=== PATIENT | female | born 1955 | race Caucasian/White ===

== ENCOUNTER 2021-12-05 15:36 | Inpatient (IN) | payer MEDICAID ==
[~2021-12-05] VITALS: Ht 162.6 cm; Wt 69.0 kg
[2021-12-05] MEDS ORDERED: acetaminophen 325mg tablet PO STA (16:07)
[2021-12-05] MEDS ORDERED: normal saline 1000ML IV soln IV ONE (16:10)
[2021-12-05 17:39] LABS: BASOPHILS # (AUTO) 0.1 X10'3 (0-0.2); BASOPHILS % (AUTO) 0.6 % (0-1); EOSINOPHILS % (AUTO) 0.2 % (0-6); HEMATOCRIT 41.3 % (35.0-45.0); HEMOGLOBIN 14.2 g/dl (12.0-16.0); LYMPHOCYTES # (AUTO) 1.8 X10'3 (1.1-4.8); LYMPHOCYTES % (AUTO) 12.7 % (21-51); MEAN CORPUSCULAR HEMOGLOBIN 30.7 PG (27.0-31.0); MEAN CORPUSCULAR HGB CONC 34.2 g/dL (33.0-36.5); MEAN CORPUSCULAR VOLUME 89.7 FL (78-98); MEAN PLATELET VOLUME 8.6 FL (7.4-10.4); MONOCYTES # (AUTO) 0.7 X10'3 (0-0.9); MONOCYTES % (AUTO) 4.9 % (2-12); NEUTROPHILS # (AUTO) 11.4 X10'3 (1.8-7.7); NEUTROPHILS % (AUTO) 81.6 % (42-75); PLATELET COUNT 457 X10'3 (140-440); RED BLOOD COUNT 4.61 X10'6 (4.20-5.60); WHITE BLOOD COUNT 13.9 X10'3 (4.5-11.0)
[2021-12-05 17:50] LABS: ALANINE AMINOTRANSFERASE 18 U/L (12-78); ALBUMIN 3.7 G/DL (3.4-5.0); ALBUMIN/GLOBULIN RATIO 0.7 (1.1-1.5); ALKALINE PHOSPHATASE 79 IU/L (46-116); ANION GAP 11 (8-16); ASPARTATE AMINO TRANSFERASE 15 U/L (10-37); BILIRUBIN,TOTAL 0.2 MG/DL (0.1-1.0); BLOOD UREA NITROGEN 13 MG/DL (7-18); BUN/CREATININE RATIO 12.3 (6.6-38.0); CALCIUM 10.1 MG/DL (8.5-10.1); CHLORIDE 99 MMOL/L (99-107); CREATININE 1.06 MG/DL (0.40-0.90); GLUCOSE 64 MG/DL (70-104); POTASSIUM 4.6 MMOL/L (3.5-5.1); SODIUM 136 MMOL/L (135-145); TOTAL CARBON DIOXIDE 25.8 MMOL/L (24-32); eGFR 52 ML/MIN
[2021-12-05] MEDS ORDERED: morphine 4 MG/ML inj SYRINge IV ONE (17:55)
[2021-12-05] MEDS ORDERED: vancomycin/NS 1 GM ADD-VANTAGE 250 ML IV ONE (17:55)
[2021-12-05] MEDS ORDERED: piperacillin/tazo 3.375gm/50ml 50 ML IV ONE (17:55)
[2021-12-05] MEDS ORDERED: iohexol 350MG/ML 100ml bottle IV ONE (18:26)
[2021-12-05] MEDS ORDERED: morphine 2 MG/ML inj. syringe IV PRN (19:35)
[2021-12-05] MEDS: normal saline 1000ml 1,000 ML IV SCH (19:35)
[2021-12-05] MEDS ORDERED: magnesium 2GM in 50ml NS 50 ML IV PRN (19:35)
[2021-12-05] MEDS ORDERED: ondansetron/PF 4mg/2ml inj IV PRN (19:35)
[2021-12-05] MEDS ORDERED: POTASSIUM BICARB 20meq eff tab 20 MEQ TABLET.EFF PO PRN ×2 (19:35)
[2021-12-05] MEDS ORDERED: magnesium 4gm in 100ml NS 100 ML IV PRN (19:35)
[2021-12-05] MEDS ORDERED: potassium CL 10mEq/100ml bag 100 ML IV PRN (19:35)
[2021-12-05] MEDS ORDERED: magnesium Cl slow-release 64mg tablet PO PRN (19:35)
[2021-12-05] MEDS ORDERED: acetaminophen 325mg tablet PO PRN (19:35)
[2021-12-05] MEDS ORDERED: magnesium hydroxide 30ml (MOM) UD suspension PO PRN (19:35)
[2021-12-05] MEDS: K and/or MAG REPLACEMENT MC SCH (19:40)
[2021-12-05] MEDS: vancomycin/NS 1 GM ADD-VANTAGE 250 ML X 1 DOSE IV SCH ×2 (19:51→20:00)
[2021-12-05] MEDS ORDERED: heparin 10,000 units/1 ML INJ IV ONE ×2 (19:55→20:35)
[2021-12-05] MEDS ORDERED: MELA10CA2 PO (19:56)
[2021-12-05] MEDS ORDERED: VARE1TAB24 PO (19:56)
[2021-12-05] MEDS ORDERED: SULF1TAB45 PO (19:56)
[2021-12-05] MEDS ORDERED: OMEP40CA21 PO (19:56)
[2021-12-05] MEDS ORDERED: DICL75TA28 PO (19:56)
[2021-12-05] MEDS ORDERED: INSU100I31 SQ ×2 (19:56→20:32)
[2021-12-05] MEDS ORDERED: LIRA0.6P2 SQ (19:56)
[2021-12-05] MEDS ORDERED: ALB0.5UD (19:56)
[2021-12-05] MEDS ORDERED: MULT-1085 PO (19:57)
[2021-12-05] MEDS ORDERED: VIT-29 (19:59)
[2021-12-05] MEDS ORDERED: VIT1TABL50 PO (19:59)
[2021-12-05] MEDS ORDERED: heparin, porcine 5000 units/ml vial SQ SCH (20:00)
[2021-12-05 20:27] LABS: APTT 31 SECONDS (22-32)
[2021-12-05] MEDS ORDERED: ALBU17AE26 INH (20:32)
[2021-12-05] MEDS ORDERED: dextrose 50%-water 50ml dispensing syringe IV PRN ×2 (20:45)
[2021-12-05] MEDS ORDERED: DEXTROSE 15 GM of carb/4 tabs (each vial/BOTTLE has 4 tablets) PO PRN ×2 (20:45)
[2021-12-05] MEDS ORDERED: MESSAGE TO PHARMACY PO ONE (20:45)
[2021-12-05] MEDS ORDERED: glucagon, human recombinant 1mg kit SUBCUT PRN (20:45)
[2021-12-05] MEDS ORDERED: albuterol 2.5 MG/3 ML nebule NEB PRN (20:55)
[2021-12-05] MEDS: insulin glargine (Lantus) pen - multi-dose SQ SCH (21:00)
[2021-12-05] MEDS ORDERED: temazepam 15mg capsule PO PRN (21:00)
[2021-12-05 21:01] LABS: HEMOGLOBIN A1C 6.1 % (4.5-6.2)
[2021-12-05] MEDS: HEPARIN SOD,PORK IN 0.45% NACL 250 ML IV SCH (21:12)
[2021-12-05] MEDS: metroNIDAZOLE-Flagyl 500mg/NS 100 ML IV SCH (21:19)
[2021-12-06] VITALS (23 sets, daily range): BP systolic 81–146; BP diastolic 26–59
[2021-12-06] MEDS: HYDROcodone/acetaminophen 10/325mg tab PO PRN ×3 (00:14→20:22)
[2021-12-06] MEDS: morphine 2 MG/ML inj. syringe IV PRN (03:39)
[2021-12-06 04:07] LABS: BASOPHILS # (AUTO) 0.1 X10'3 (0-0.2); BASOPHILS % (AUTO) 0.7 % (0-1); EOSINOPHILS # (AUTO) 0.2 X10'3 (0-0.9); EOSINOPHILS % (AUTO) 1.6 % (0-6); HEMATOCRIT 36.1 % (35.0-45.0); HEMOGLOBIN 12.2 g/dl (12.0-16.0); LYMPHOCYTES # (AUTO) 3.2 X10'3 (1.1-4.8); LYMPHOCYTES % (AUTO) 29.6 % (21-51); MEAN CORPUSCULAR HEMOGLOBIN 30.4 PG (27.0-31.0); MEAN CORPUSCULAR HGB CONC 33.9 g/dL (33.0-36.5); MEAN CORPUSCULAR VOLUME 89.7 FL (78-98); MEAN PLATELET VOLUME 9.2 FL (7.4-10.4); MONOCYTES % (AUTO) 9.1 % (2-12); NEUTROPHILS # (AUTO) 6.4 X10'3 (1.8-7.7); PLATELET COUNT 342 X10'3 (140-440); RED BLOOD COUNT 4.02 X10'6 (4.20-5.60); RED CELL DISTRIBUTION WIDTH 13.9 % (11.5-14.5); WHITE BLOOD COUNT 10.9 X10'3 (4.5-11.0)
[2021-12-06 04:20] LABS: ALANINE AMINOTRANSFERASE 13 U/L (12-78); ALBUMIN 2.6 G/DL (3.4-5.0); ALBUMIN/GLOBULIN RATIO 0.7 (1.1-1.5); ALKALINE PHOSPHATASE 64 IU/L (46-116); ANION GAP 9 (8-16); ASPARTATE AMINO TRANSFERASE 8 U/L (10-37); BILIRUBIN,TOTAL 0.1 MG/DL (0.1-1.0); BLOOD UREA NITROGEN 12 MG/DL (7-18); BUN/CREATININE RATIO 10.2 (6.6-38.0); CALCIUM 8.5 MG/DL (8.5-10.1); CHLORIDE 106 MMOL/L (99-107); CREATININE 1.18 MG/DL (0.40-0.90); GLUCOSE 84 MG/DL (70-104); POTASSIUM 3.9 MMOL/L (3.5-5.1); SODIUM 140 MMOL/L (135-145); TOTAL CARBON DIOXIDE 25.3 MMOL/L (24-32); TOTAL PROTEIN 6.6 G/DL (6.4-8.2); eGFR 46 ML/MIN
[2021-12-06] MEDS: heparin 10,000 units/1 ML INJ IV PRN ×2 (05:20→20:03)
[2021-12-06] MEDS: normal saline 1000ml 1,000 ML IV SCH ×2 (05:35→20:13)
[2021-12-06] MEDS ORDERED: regadenoson 0.4mg/5ml syringe IV PRN (07:45)
[2021-12-06] MEDS ORDERED: metoprolol tartrate 1mg/ml inj IV PRN (07:45)
[2021-12-06] MEDS ORDERED: aminophylline 500mg/20ml vial IV PRN (07:45)
[2021-12-06] MEDS ORDERED: PERFLUTREN PROTEIN-A MICROSPHR (Optison) 0.22 MG/ML 3ML VIAL IV ONE (07:45)
[2021-12-06] MEDS ORDERED: nitroGLYCERIN 0.4mg SUBLingual tab SL PRN (07:45)
[2021-12-06] MEDS ORDERED: dextrose 5%-water 1,000 ML IV SCH (07:45)
[2021-12-06] MEDS: K and/or MAG REPLACEMENT MC SCH ×2 (07:46→20:00)
--- NOTE | 2021-12-06 07:47 | NUR ---
Glucose tablets given per protocol, and apple juice. Addendum: 12/06/21 at 0749 by Amalia Vieira RN Amended: Links added.
--- NOTE | 2021-12-06 07:51 | NUR ---
I will recheck BP due to dyastolic documented at 26 by fast food shift supervisor aidsanchez. Addendum: 12/06/21 at 0752 by Amalia Vieira RN Amended: Links added.
[2021-12-06] MEDS: metroNIDAZOLE-Flagyl 500mg/NS 100 ML IV SCH ×2 (08:18→22:07)
[2021-12-06] MEDS: pantoprazole 40mg Tablet.DR PO SCH (08:18)
[2021-12-06] MEDS ORDERED: aminophylline inj. 10 ML IV ONE (11:20)
--- NOTE | 2021-12-06 12:09 | NUR ---
Malnutrition Consult: Pt admit DX necrotic L great toe, PVD, and hx T2DM A1C 6.1% per EMR. Glu 128mg/dl up from prior 62mg/dl started on D5W at 100ml/hr per EMR. providing 408 kcals/day. 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 Pending physical assessment this admit. Current chair scaled wt appropriate for age w/ no prior wt hx. Pt lacks minimum malnutrition criteria at this time; will monitor for further malnutrition criteria and nutrition intervention needs this admit. Addendum: 12/06/21 at [address] Amended: Links added.
--- NOTE | 2021-12-06 13:19 | NUR ---
PAGER ID: [phone] MESSAGE: [phone] ERICK MORGAN CAROTIDS ARE POSITIVE, 60-79% ON THE RIGHT 80-99% ON THE LEFT WITH A 500% VELOCITY, REPORT TO FOLLOW..... CLARA [id number]
[2021-12-06 16:58] LABS: CHOL/HDL RATIO 5.3 (0.00-4.99); CHOLESTEROL 175 MG/DL (0-200); HDL CHOLESTEROL 33 MG/DL (35-60); LDL CHOLESTEROL 119 MG/DL (50-100); TRIGLYCERIDES 143 MG/DL (20-135)
--- NOTE | 2021-12-06 18:35 | NUR ---
Problems reprioritized. Patient report given, questions answered & plan of care reviewed with Nahomi CHRISTENSEN.
[2021-12-06] MEDS: vancomycin/NS 1 GM ADD-VANTAGE 250 ML IV SCH (20:04)
[2021-12-06] MEDS: insulin glargine (Lantus) pen - multi-dose SQ SCH (20:30)
[2021-12-06] MEDS: HEPARIN SOD,PORK IN 0.45% NACL 250 ML IV SCH (23:11)
[2021-12-07] VITALS (9 sets, daily range): BP systolic 110–162; BP diastolic 50–83
[2021-12-07] MEDS: HYDROcodone/acetaminophen 10/325mg tab PO PRN ×3 (02:41→16:21)
[2021-12-07 02:50] LABS: BASOPHILS # (AUTO) 0.1 X10'3 (0-0.2); BASOPHILS % (AUTO) 0.9 % (0-1); EOSINOPHILS # (AUTO) 0.2 X10'3 (0-0.9); EOSINOPHILS % (AUTO) 2.1 % (0-6); HEMATOCRIT 36.4 % (35.0-45.0); HEMOGLOBIN 12.4 g/dl (12.0-16.0); LYMPHOCYTES # (AUTO) 2.9 X10'3 (1.1-4.8); LYMPHOCYTES % (AUTO) 30.2 % (21-51); MEAN CORPUSCULAR HEMOGLOBIN 30.5 PG (27.0-31.0); MEAN CORPUSCULAR VOLUME 89.9 FL (78-98); MEAN PLATELET VOLUME 8.7 FL (7.4-10.4); MONOCYTES # (AUTO) 0.8 X10'3 (0-0.9); MONOCYTES % (AUTO) 8.5 % (2-12); NEUTROPHILS # (AUTO) 5.6 X10'3 (1.8-7.7); NEUTROPHILS % (AUTO) 58.3 % (42-75); PLATELET COUNT 353 X10'3 (140-440); RED BLOOD COUNT 4.05 X10'6 (4.20-5.60); RED CELL DISTRIBUTION WIDTH 13.8 % (11.5-14.5); WHITE BLOOD COUNT 9.7 X10'3 (4.5-11.0)
[2021-12-07 03:00] LABS: ALANINE AMINOTRANSFERASE 20 U/L (12-78); ALBUMIN 2.8 G/DL (3.4-5.0); ALBUMIN/GLOBULIN RATIO 0.6 (1.1-1.5); ALKALINE PHOSPHATASE 65 IU/L (46-116); ANION GAP 7 (8-16); ASPARTATE AMINO TRANSFERASE 10 U/L (10-37); BILIRUBIN,TOTAL 0.1 MG/DL (0.1-1.0); BLOOD UREA NITROGEN 10 MG/DL (7-18); BUN/CREATININE RATIO 10.6 (6.6-38.0); CALCIUM 9.1 MG/DL (8.5-10.1); CHLORIDE 103 MMOL/L (99-107); CREATININE 0.94 MG/DL (0.40-0.90); GLUCOSE 168 MG/DL (70-104); POTASSIUM 4.1 MMOL/L (3.5-5.1); SODIUM 136 MMOL/L (135-145); TOTAL CARBON DIOXIDE 25.6 MMOL/L (24-32); TOTAL PROTEIN 7.2 G/DL (6.4-8.2); eGFR 60 ML/MIN
[2021-12-07] MEDS ORDERED: nitroPRUSSIDE sod inj. 50 MG in dextrose 5%-water 248 ML IV SCH (07:25)
[2021-12-07] MEDS ORDERED: nitroPRUSSIDE 0.2mg/mL in NS 100 ML IV SCH (07:41)
[2021-12-07] MEDS: K and/or MAG REPLACEMENT MC SCH ×2 (08:16→21:00)
[2021-12-07] MEDS: pantoprazole 40mg Tablet.DR PO SCH (08:30)
[2021-12-07] MEDS: metroNIDAZOLE-Flagyl 500mg/NS 100 ML IV SCH ×2 (08:30→22:36)
[2021-12-07] MEDS: normal saline 1000ml 1,000 ML IV SCH (12:20)
--- NOTE | 2021-12-07 15:05 | NUR ---
PRESSURE ULCER EDUCATION: DEFINITION: A pressure ulcer is an area of skin that breaks down when you stay in one position too long. The constant pressure against the skin reduces the blood flow to that area and the affected tissue dies. CAUSES: "Being bedridden or in a wheelchair "Fragile skin "Having a chronic condition, such as diabetes or vascular disease "Inability to move certain parts of your body without assistance "Older age "Incontinence of urine or stool SYMPTOMS: "A reddened area that DOES NOT turn white when pressed on - this can be the beginning of a pressure ulcer "A blister, deep sore or a crater - these can be advanced pressure ulcers FIRST AID: "Relieve the pressure on this area "Keep the area clean and dry "Call your primary doctor if you see any of the above symptoms "DO NOT massage the area "DO NOT use a donut shaped or ring shaped pillow- these actually interfere with the blood flow and cause complications PREVENTION: "Check for pressure ulcers everyday "Change position at least every two hours to relieve pressure "Use items that help relieve pressure- pillows, sheepskin, foam padding, and powders. "Keep skin clean and dry "Eat healthy well balanced meals "Exercise daily IF YOU SEE ANY OF THESE SYMPTOMS WHILE IN THE HOSPITAL - TELL YOUR NURSE IMMEDIATELY. IF YOU SEE ANY OF THESE SYMPTOMS WHILE AT HOME OR HAVE ANY QUESTIONS OR CONCERNS ABOUT PRESSURE ULCERS - CALL YOUR PRIMARY DOCTOR IMMEDIATELY. Addendum: 12/07/21 at 1506 by Zahra Abreu LVN Amended: Links added.
[2021-12-07] MEDS ORDERED: LIDOcaine 1% (10mg/ml) 2ml vial ONE ×2 (17:40→18:12)
[2021-12-07] MEDS ORDERED: heparin 10,000 units/1 ML INJ ONE (17:41)
[2021-12-07] MEDS: HEPARIN SOD,PORK IN 0.45% NACL 250 ML IV SCH (17:50)
--- NOTE | 2021-12-07 18:01 | NUR ---
report to Nahomi CHRISTENSEN in Recovery
[2021-12-07] MEDS ORDERED: morphine 2 MG/ML inj. syringe IV PRN (18:45)
[2021-12-07] MEDS ORDERED: ondansetron/PF 4mg/2ml inj IV PRN (18:45)
[2021-12-07] MEDS ORDERED: ringers solution, lacted 1,000 ML IV SCH (18:45)
[2021-12-07] MEDS ORDERED: proCHLORperazine 10 MG/2 ml inj IV PRN (18:45)
[2021-12-07] MEDS ORDERED: morphine 4 MG/ML inj SYRINge IV PRN (18:45)
[2021-12-07] MEDS ORDERED: meperidine/PF 25mg/ml syringe IV PRN ×3 (18:45)
[2021-12-07] MEDS ORDERED: rocuronium 10mg/ml inj IV ONE ×2 (18:46→18:51)
[2021-12-07] MEDS ORDERED: PHENYLEPHRINE IV ONE (18:46)
[2021-12-07] MEDS ORDERED: sevoflurane 250ml liquid IH ONE (18:46)
[2021-12-07] MEDS ORDERED: midazolam 1 mg/ML 2ml injection ONE (18:51)
[2021-12-07] MEDS ORDERED: propofol inj 20 ML IV ONE (18:51)
[2021-12-07] MEDS ORDERED: fentaNYL/PF 50MCG/1 ML 2ML syringe ONE (18:51)
[2021-12-07] MEDS ORDERED: ePHEDrine 50MG/ML INJ. ONE (19:05)
[2021-12-07] MEDS ORDERED: dexamethasone sod phosphate 4mg/ml inj. ONE (19:22)
[2021-12-07] MEDS ORDERED: heparin 1,000unit/ml 10ml vial 10 ML ONE (19:49)
[2021-12-07] MEDS: insulin glargine (Lantus) pen - multi-dose SQ SCH (21:00)
[2021-12-07] MEDS ORDERED: ondansetron/PF 4mg/2ml inj ONE (21:06)
[2021-12-07] MEDS ORDERED: sugammadex 200mg/2ml injection IV ONE (21:10)
[2021-12-07] MEDS ORDERED: naloxone 0.4 mg/ml inj IV PRN (21:25)
--- NOTE | 2021-12-07 21:33 | NUR ---
Received from OR via , accompanied by Anesthesiologist DR MARSH and report given by Anesthesiolgist. PT IS AWAKE AND ALERT, MOVING EXT X 4, SKIN WARM AND PINK, LEFT HAND 20G WITH LR 100ML/HR, AND KAYLIN, SCD'S, RIGHT AC 20G SL, RIGHT RADIAL ART LINE, LEFT NECK DRESSING CD.
[2021-12-07] MEDS: morphine 2 MG/ML inj. syringe IV PRN (22:03)
--- NOTE | 2021-12-07 22:03 | NUR ---
Report called to receiving nurse. Transferred via BED Belongings . Special Issues communicated to receiving nurse JUANJO CHRISTENSEN. PT IS AWAKE, ALERT, MOVING EXT X 4 WITH EQUAL CARGO AND RAMP SERVICES MANAGER STRENTH, SKIN WARM AND PINK, SCD'S, PIV LEFT HAND PATENT, ART LINE ON RIGHT, DRESSING TO LEFT NECK CD, IV MEDS GIVEN FOR PAIN. PT MEETS DISCHARGE CRITERIA
[2021-12-07 22:29] LABS: APTT > 139 SECONDS (22-32)
[2021-12-07] MEDS: phenylephrine inj 50 MG in normal saline 250ml IV solN IV SCH (22:34)
[2021-12-07 22:36] LABS: BASOPHILS # (AUTO) 0.1 X10'3 (0-0.2); BASOPHILS % (AUTO) 0.7 % (0-1); EOSINOPHILS % (AUTO) 0.5 % (0-6); HEMATOCRIT 34.6 % (35.0-45.0); HEMOGLOBIN 11.7 g/dl (12.0-16.0); LYMPHOCYTES # (AUTO) 1.2 X10'3 (1.1-4.8); LYMPHOCYTES % (AUTO) 10.8 % (21-51); MEAN CORPUSCULAR HEMOGLOBIN 30.9 PG (27.0-31.0); MEAN CORPUSCULAR VOLUME 90.9 FL (78-98); MEAN PLATELET VOLUME 9.3 FL (7.4-10.4); MONOCYTES # (AUTO) 0.2 X10'3 (0-0.9); MONOCYTES % (AUTO) 2.3 % (2-12); NEUTROPHILS # (AUTO) 9.3 X10'3 (1.8-7.7); NEUTROPHILS % (AUTO) 85.7 % (42-75); PLATELET COUNT 362 X10'3 (140-440); RED CELL DISTRIBUTION WIDTH 13.9 % (11.5-14.5); WHITE BLOOD COUNT 10.9 X10'3 (4.5-11.0)
[2021-12-07 22:49] LABS: ALANINE AMINOTRANSFERASE 17 U/L (12-78); ALBUMIN 2.6 G/DL (3.4-5.0); ALBUMIN/GLOBULIN RATIO 0.6 (1.1-1.5); ALKALINE PHOSPHATASE 59 IU/L (46-116); ANION GAP 11 (8-16); ASPARTATE AMINO TRANSFERASE 11 U/L (10-37); BILIRUBIN,TOTAL 0.2 MG/DL (0.1-1.0); BLOOD UREA NITROGEN 7 MG/DL (7-18); BUN/CREATININE RATIO 9.7 (6.6-38.0); CALCIUM 8.5 MG/DL (8.5-10.1); CHLORIDE 102 MMOL/L (99-107); CREATININE 0.72 MG/DL (0.40-0.90); GLUCOSE 219 MG/DL (70-104); MAGNESIUM 1.6 MG/DL (1.5-2.4); SODIUM 137 MMOL/L (135-145); TOTAL CARBON DIOXIDE 24.2 MMOL/L (24-32); TOTAL PROTEIN 6.8 G/DL (6.4-8.2); eGFR 82 ML/MIN
[2021-12-07 23:09] LABS: APTT > 139 SECONDS (22-32)
[2021-12-08] VITALS (23 sets, daily range): BP systolic 79–163; BP diastolic 24–134
[2021-12-08] MEDS: vancomycin/NS 1 GM ADD-VANTAGE 250 ML IV SCH ×2 (00:02→19:30)
[2021-12-08] MEDS: HYDROcodone/acetaminophen 5mg/325mg tablet PO PRN ×6 (00:54→22:03)
[2021-12-08] MEDS: ceFAZolin/D5W- 1GM premix 50 ML IV SCH ×2 (02:05→09:03)
[2021-12-08 02:48] LABS: BASOPHILS # (AUTO) 0.1 X10'3 (0-0.2); BASOPHILS % (AUTO) 0.5 % (0-1); EOSINOPHILS % (AUTO) 0.1 % (0-6); HEMOGLOBIN 11.3 g/dl (12.0-16.0); LYMPHOCYTES % (AUTO) 6.8 % (21-51); MEAN CORPUSCULAR HEMOGLOBIN 29.9 PG (27.0-31.0); MEAN CORPUSCULAR HGB CONC 33.2 g/dL (33.0-36.5); MEAN CORPUSCULAR VOLUME 90.1 FL (78-98); MONOCYTES # (AUTO) 0.2 X10'3 (0-0.9); MONOCYTES % (AUTO) 1.6 % (2-12); NEUTROPHILS # (AUTO) 13.7 X10'3 (1.8-7.7); PLATELET COUNT 374 X10'3 (140-440); RED BLOOD COUNT 3.78 X10'6 (4.20-5.60); RED CELL DISTRIBUTION WIDTH 13.6 % (11.5-14.5)
[2021-12-08 03:02] LABS: ALANINE AMINOTRANSFERASE 18 U/L (12-78); ALBUMIN 2.5 G/DL (3.4-5.0); ALBUMIN/GLOBULIN RATIO 0.6 (1.1-1.5); ALKALINE PHOSPHATASE 54 IU/L (46-116); ANION GAP 12 (8-16); ASPARTATE AMINO TRANSFERASE 14 U/L (10-37); BILIRUBIN,TOTAL 0.2 MG/DL (0.1-1.0); BLOOD UREA NITROGEN 8 MG/DL (7-18); BUN/CREATININE RATIO 11.6 (6.6-38.0); CALCIUM 8.5 MG/DL (8.5-10.1); CHLORIDE 103 MMOL/L (99-107); CREATININE 0.69 MG/DL (0.40-0.90); GLUCOSE 253 MG/DL (70-104); POTASSIUM 4.3 MMOL/L (3.5-5.1); SODIUM 139 MMOL/L (135-145); TOTAL PROTEIN 6.7 G/DL (6.4-8.2); eGFR 86 ML/MIN
[2021-12-08] MEDS: K and/or MAG REPLACEMENT MC SCH ×2 (08:00→20:57)
[2021-12-08] MEDS: normal saline 1000ml 1,000 ML IV SCH (08:20)
[2021-12-08] MEDS: pantoprazole 40mg Tablet.DR PO SCH (09:03)
[2021-12-08] MEDS: metroNIDAZOLE-Flagyl 500mg/NS 100 ML IV SCH ×2 (09:04→20:45)
[2021-12-08] MEDS: insulin Lispro (HumaLOG) vial - multi-dose SQ SCH ×2 (10:43→14:02)
--- NOTE | 2021-12-08 13:04 | NUR ---
Paged vascular and notified them of aPTT level
--- NOTE | 2021-12-08 16:41 | NUR ---
Patient DEIDRE drain removed as well as the art line is removed. Patient still on vaso active drug esau at 0.6 to keep blood pressures above [address] Coello.
[2021-12-08] MEDS ORDERED: VANCOMYCIN LEVEL IV ONE (19:00)
[2021-12-08] MEDS: insulin glargine (Lantus) pen - multi-dose SQ SCH (21:00)
[2021-12-08] MEDS: phenylephrine inj 50 MG in normal saline 250ml IV solN IV SCH (22:34)
[2021-12-09] VITALS (22 sets, daily range): BP systolic 115–171; BP diastolic 35–65
[2021-12-09] MEDS: normal saline 1000ml 1,000 ML IV SCH ×2 (04:57→20:16)
[2021-12-09 06:22] LABS: BASOPHILS # (AUTO) 0.1 X10'3 (0-0.2); BASOPHILS % (AUTO) 0.7 % (0-1); EOSINOPHILS # (AUTO) 0.1 X10'3 (0-0.9); EOSINOPHILS % (AUTO) 1.2 % (0-6); HEMATOCRIT 36.6 % (35.0-45.0); HEMOGLOBIN 12.5 g/dl (12.0-16.0); LYMPHOCYTES # (AUTO) 2.9 X10'3 (1.1-4.8); LYMPHOCYTES % (AUTO) 26.4 % (21-51); MEAN CORPUSCULAR HGB CONC 34.2 g/dL (33.0-36.5); MEAN CORPUSCULAR VOLUME 90.7 FL (78-98); MEAN PLATELET VOLUME 9.5 FL (7.4-10.4); MONOCYTES # (AUTO) 1.1 X10'3 (0-0.9); MONOCYTES % (AUTO) 10.4 % (2-12); NEUTROPHILS # (AUTO) 6.7 X10'3 (1.8-7.7); NEUTROPHILS % (AUTO) 61.3 % (42-75); PLATELET COUNT 419 X10'3 (140-440); RED BLOOD COUNT 4.03 X10'6 (4.20-5.60); RED CELL DISTRIBUTION WIDTH 13.7 % (11.5-14.5); WHITE BLOOD COUNT 10.9 X10'3 (4.5-11.0)
[2021-12-09] MEDS: phenylephrine inj 50 MG in normal saline 250ml IV solN IV SCH (07:21)
[2021-12-09] MEDS: metroNIDAZOLE-Flagyl 500mg/NS 100 ML IV SCH (07:22)
[2021-12-09] MEDS: pantoprazole 40mg Tablet.DR PO SCH (07:22)
[2021-12-09 07:44] LABS: ALANINE AMINOTRANSFERASE 21 U/L (12-78); ALBUMIN 2.9 G/DL (3.4-5.0); ALBUMIN/GLOBULIN RATIO 0.7 (1.1-1.5); ALKALINE PHOSPHATASE 57 IU/L (46-116); ANION GAP 12 (8-16); ASPARTATE AMINO TRANSFERASE 21 U/L (10-37); BILIRUBIN,TOTAL 0.2 MG/DL (0.1-1.0); BLOOD UREA NITROGEN 5 MG/DL (7-18); BUN/CREATININE RATIO 7.8 (6.6-38.0); CHLORIDE 105 MMOL/L (99-107); CREATININE 0.64 MG/DL (0.40-0.90); GLUCOSE 177 MG/DL (70-104); POTASSIUM 3.8 MMOL/L (3.5-5.1); SODIUM 142 MMOL/L (135-145); TOTAL CARBON DIOXIDE 24.9 MMOL/L (24-32); TOTAL PROTEIN 7.3 G/DL (6.4-8.2); eGFR > 90 ML/MIN
[2021-12-09] MEDS: K and/or MAG REPLACEMENT MC SCH ×2 (08:00→20:00)
[2021-12-09] MEDS: vancomycin/NS 1 GM ADD-VANTAGE 250 ML IV SCH ×2 (09:06→20:40)
[2021-12-09] MEDS: aspirin 81mg tab.chew PO SCH (09:06)
[2021-12-09] MEDS: insulin Lispro (HumaLOG) vial - multi-dose SQ SCH ×2 (10:10→13:03)
[2021-12-09] MEDS: metroNIDAZOLE 500mg tablet PO SCH (20:17)
[2021-12-09] MEDS: insulin glargine (Lantus) pen - multi-dose SQ SCH (20:35)
[2021-12-09] MEDS: diatr meglu/diatrizoate 30ml oral sol.-(3 dose) bottle PO SCH (21:00)
[2021-12-10] VITALS (20 sets, daily range): BP systolic 84–177; BP diastolic 27–81
[2021-12-10 06:22] LABS: ALANINE AMINOTRANSFERASE 24 U/L (12-78); ALBUMIN/GLOBULIN RATIO 0.7 (1.1-1.5); ALKALINE PHOSPHATASE 61 IU/L (46-116); ANION GAP 10 (8-16); ASPARTATE AMINO TRANSFERASE 18 U/L (10-37); BILIRUBIN,TOTAL 0.2 MG/DL (0.1-1.0); BLOOD UREA NITROGEN 7 MG/DL (7-18); BUN/CREATININE RATIO 12.1 (6.6-38.0); CALCIUM 9.3 MG/DL (8.5-10.1); CHLORIDE 103 MMOL/L (99-107); CREATININE 0.58 MG/DL (0.40-0.90); GLUCOSE 144 MG/DL (70-104); POTASSIUM 3.5 MMOL/L (3.5-5.1); SODIUM 142 MMOL/L (135-145); TOTAL CARBON DIOXIDE 29.2 MMOL/L (24-32); TOTAL PROTEIN 7.5 G/DL (6.4-8.2); eGFR > 90 ML/MIN
[2021-12-10 06:27] LABS: BASOPHILS # (AUTO) 0.1 X10'3 (0-0.2); BASOPHILS % (AUTO) 0.7 % (0-1); EOSINOPHILS # (AUTO) 0.2 X10'3 (0-0.9); EOSINOPHILS % (AUTO) 1.7 % (0-6); HEMATOCRIT 36.6 % (35.0-45.0); HEMOGLOBIN 12.4 g/dl (12.0-16.0); LYMPHOCYTES # (AUTO) 2.5 X10'3 (1.1-4.8); LYMPHOCYTES % (AUTO) 24.8 % (21-51); MEAN CORPUSCULAR HEMOGLOBIN 30.5 PG (27.0-31.0); MEAN CORPUSCULAR VOLUME 89.7 FL (78-98); MEAN PLATELET VOLUME 9.4 FL (7.4-10.4); MONOCYTES % (AUTO) 9.4 % (2-12); NEUTROPHILS # (AUTO) 6.5 X10'3 (1.8-7.7); NEUTROPHILS % (AUTO) 63.4 % (42-75); PLATELET COUNT 388 X10'3 (140-440); RED BLOOD COUNT 4.08 X10'6 (4.20-5.60); RED CELL DISTRIBUTION WIDTH 13.6 % (11.5-14.5); WHITE BLOOD COUNT 10.3 X10'3 (4.5-11.0)
[2021-12-10] MEDS: diatr meglu/diatrizoate 30ml oral sol.-(3 dose) bottle PO SCH ×2 (07:00→22:53)
[2021-12-10] MEDS ORDERED: iohexol 350MG/ML 100ml bottle IV ONE (07:02)
[2021-12-10] MEDS ORDERED: LIDOcaine 1% (10mg/ml) 2ml vial ONE (07:07)
[2021-12-10] MEDS: phenylephrine inj 50 MG in normal saline 250ml IV solN IV SCH (07:49)
[2021-12-10] MEDS: atorvastatin 20mg tablet PO SCH (08:00)
[2021-12-10] MEDS: metroNIDAZOLE 500mg tablet PO SCH ×2 (08:00→23:04)
[2021-12-10] MEDS: pantoprazole 40mg Tablet.DR PO SCH (08:00)
[2021-12-10] MEDS: K and/or MAG REPLACEMENT MC SCH ×2 (08:00→22:52)
[2021-12-10] MEDS: aspirin 81mg tab.chew PO SCH (08:30)
[2021-12-10] MEDS: vancomycin/NS 1 GM ADD-VANTAGE 250 ML IV SCH ×2 (09:53→22:56)
--- NOTE | 2021-12-10 11:22 | NUR ---
Initial: Pt admit DX necrotic L great toe, PVD, bilateral carotid stenosis, HTN, T2DM, and SHARMIN per EMR. Pt PO 100% first heart healthy meal 12/06 WS though subsequently NPO s/p L CEA 12/07 and pending L femoral bypass today per EMR. Consumed 50% breakfast and lunch clear liquids yesterday though otherwise no significant nutrition this admit not meeting needs. LBM 12/06. Will monitor for diet advancement, PO trends, and ONS needs post-op. Rec: 1. advance diet as medically indicated to heart healthy post-op 2. monitor for ONS needs pending PO trends w/ diet advancement post-op 3. MVI supplemental if MD agreeable post-op 4. routine bowel care 5. weekly wts Addendum: 12/10/21 at [address] Amended: Links added.
[2021-12-10] MEDS: NORepinephrine 8mg/ 250ml NS 250 ML IV SCH (13:30)
--- NOTE | 2021-12-10 14:22 | NUR ---
PRESSURE ULCER EDUCATION: DEFINITION: A pressure ulcer is an area of skin that breaks down when you stay in one position too long. The constant pressure against the skin reduces the blood flow to that area and the affected tissue dies. CAUSES: "Being bedridden or in a wheelchair "Fragile skin "Having a chronic condition, such as diabetes or vascular disease "Inability to move certain parts of your body without assistance "Older age "Incontinence of urine or stool SYMPTOMS: "A reddened area that DOES NOT turn white when pressed on - this can be the beginning of a pressure ulcer "A blister, deep sore or a crater - these can be advanced pressure ulcers FIRST AID: "Relieve the pressure on this area "Keep the area clean and dry "Call your primary doctor if you see any of the above symptoms "DO NOT massage the area "DO NOT use a donut shaped or ring shaped pillow- these actually interfere with the blood flow and cause complications PREVENTION: "Check for pressure ulcers everyday "Change position at least every two hours to relieve pressure "Use items that help relieve pressure- pillows, sheepskin, foam padding, and powders. "Keep skin clean and dry "Eat healthy well balanced meals "Exercise daily IF YOU SEE ANY OF THESE SYMPTOMS WHILE IN THE HOSPITAL - TELL YOUR NURSE IMMEDIATELY. IF YOU SEE ANY OF THESE SYMPTOMS WHILE AT HOME OR HAVE ANY QUESTIONS OR CONCERNS ABOUT PRESSURE ULCERS - CALL YOUR PRIMARY DOCTOR IMMEDIATELY. Addendum: 12/10/21 at 1422 by Anisa Olvera RN Amended: Links added.
[2021-12-10] MEDS ORDERED: sevoflurane 250ml liquid IH ONE (15:49)
[2021-12-10] MEDS ORDERED: ondansetron/PF 4mg/2ml inj ONE (15:49)
[2021-12-10] MEDS ORDERED: rocuronium 10mg/ml inj IV ONE ×2 (15:49→16:59)
[2021-12-10] MEDS ORDERED: midazolam 1 mg/ML 2ml injection ONE ×2 (15:54)
[2021-12-10] MEDS ORDERED: fentaNYL /PF 50mcg/ml 5ml ampule ONE (15:57)
[2021-12-10] MEDS ORDERED: ceFAZolin 1000mg inj ONE ×3 (16:56→20:39)
[2021-12-10] MEDS ORDERED: propofol inj 20 ML IV ONE (16:59)
[2021-12-10] MEDS ORDERED: ePHEDrine 50MG/ML INJ. ONE (16:59)
[2021-12-10] MEDS: heparin 10,000 units/1 ML INJ ONE ×2 (17:50→17:52)
[2021-12-10] MEDS ORDERED: VANCOMYCIN LEVEL IV ONE (19:30)
[2021-12-10] MEDS ORDERED: iohexol 300 MG/1 ML 10ml vial ONE ×2 (20:05→20:21)
[2021-12-10] MEDS ORDERED: ringers solution, lacted 1,000 ML IV SCH (20:20)
[2021-12-10] MEDS ORDERED: morphine 2 MG/ML inj. syringe IV PRN (20:20)
[2021-12-10] MEDS ORDERED: morphine 4 MG/ML inj SYRINge IV PRN (20:20)
[2021-12-10] MEDS ORDERED: ondansetron/PF 4mg/2ml inj IV PRN (20:20)
[2021-12-10] MEDS ORDERED: albumin (Human) 5% 250ml 250 ML IV ONE ×3 (20:39→22:40)
[2021-12-10 21:19] LABS: APTT > 139 SECONDS (22-32)
[2021-12-10] MEDS ORDERED: sodium bicarbonate (8.4%) inj. 1 MEQ/ML ML ONE (21:42)
[2021-12-10] MEDS ORDERED: naloxone 0.4 mg/ml inj IV PRN (21:45)
[2021-12-10] MEDS ORDERED: propofol 1000mg/100ml bottle 100 ML IV SCH (22:05)
[2021-12-10] MEDS: FENTANYL-0.9 % NACL/PF 100 ML IV PRN (22:13)
[2021-12-10 22:34] LABS: ABG BASE EXCESS -5.5 mmol/L (-2.0-2.0); ABG HCO3 19.8 mmol/L (22.0-26.0); ABG OXYGEN SATURATION 96.3 % (94-97); ABG PCO2 (T) 36.3 mmHg (32.0-45.0); FCOHb 0.3 % (0.0-3.9); FMetHb 0.3 % (0.0-1.5); FO2Hb 95.7 % (94-97); PEEP 5 cm H2O; RESPIRATORY RATE 12 b/min; TIDAL VOLUME 400 mL; TOTAL HEMOGLOBIN 11.8 G/dl (12.0-16.0)
[2021-12-10] MEDS ORDERED: albumin (Human) 5% 250ml 500 ML IV ONE (22:39)
[2021-12-10 22:44] LABS: BASOPHILS # (AUTO) 0.1 X10'3 (0-0.2); BASOPHILS % (AUTO) 0.3 % (0-1); EOSINOPHILS % (AUTO) 0.1 % (0-6); HEMATOCRIT 31.8 % (35.0-45.0); HEMOGLOBIN 10.6 g/dl (12.0-16.0); LYMPHOCYTES # (AUTO) 3.4 X10'3 (1.1-4.8); LYMPHOCYTES % (AUTO) 10.2 % (21-51); MEAN CORPUSCULAR HEMOGLOBIN 30.1 PG (27.0-31.0); MEAN CORPUSCULAR HGB CONC 33.2 g/dL (33.0-36.5); MEAN CORPUSCULAR VOLUME 90.6 FL (78-98); MEAN PLATELET VOLUME 9.5 FL (7.4-10.4); MONOCYTES % (AUTO) 3.1 % (2-12); NEUTROPHILS # (AUTO) 28.8 X10'3 (1.8-7.7); NEUTROPHILS % (AUTO) 86.3 % (42-75); PLATELET COUNT 399 X10'3 (140-440); RED BLOOD COUNT 3.51 X10'6 (4.20-5.60); RED CELL DISTRIBUTION WIDTH 13.8 % (11.5-14.5)
[2021-12-10] MEDS: insulin Lispro (HumaLOG) vial - multi-dose SQ SCH (22:48)
[2021-12-10] MEDS: insulin glargine (Lantus) pen - multi-dose SQ SCH (22:50)
[2021-12-10 23:00] LABS: WHITE BLOOD COUNT 33.3 X10'3 (4.5-11.0)
[2021-12-10 23:09] LABS: TOTAL CELLS COUNTED 100
[2021-12-10 23:12] LABS: PLATELET ESTIMATE NORMAL
[2021-12-11] VITALS (29 sets, daily range): BP systolic 76–155; BP diastolic 31–93
[2021-12-11] MEDS: insulin Lispro (HumaLOG) vial - multi-dose SQ SCH ×4 (02:38→20:41)
[2021-12-11] MEDS: ceFOXitin inj 1,000 MG in normal saline 100ml IV soln 100 ML IV SCH ×2 (02:41→07:58)
[2021-12-11 03:09] LABS: BASOPHILS # (AUTO) 0.1 X10'3 (0-0.2); BASOPHILS % (AUTO) 0.2 % (0-1); EOSINOPHILS % (AUTO) 0 % (0-6); HEMATOCRIT 29.3 % (35.0-45.0); HEMOGLOBIN 9.8 g/dl (12.0-16.0); LYMPHOCYTES # (AUTO) 1.9 X10'3 (1.1-4.8); LYMPHOCYTES % (AUTO) 5.8 % (21-51); MEAN CORPUSCULAR HEMOGLOBIN 30.4 PG (27.0-31.0); MEAN CORPUSCULAR HGB CONC 33.5 g/dL (33.0-36.5); MEAN CORPUSCULAR VOLUME 90.8 FL (78-98); MONOCYTES # (AUTO) 2.3 X10'3 (0-0.9); MONOCYTES % (AUTO) 7.1 % (2-12); NEUTROPHILS # (AUTO) 27.6 X10'3 (1.8-7.7); NEUTROPHILS % (AUTO) 86.9 % (42-75); PLATELET COUNT 355 X10'3 (140-440); RED BLOOD COUNT 3.23 X10'6 (4.20-5.60); RED CELL DISTRIBUTION WIDTH 13.5 % (11.5-14.5)
[2021-12-11 03:28] LABS: WHITE BLOOD COUNT 31.8 X10'3 (4.5-11.0)
[2021-12-11 03:30] LABS: ALANINE AMINOTRANSFERASE 19 U/L (12-78); ALBUMIN/GLOBULIN RATIO 1.4 (1.1-1.5); ALKALINE PHOSPHATASE 33 IU/L (46-116); ANION GAP 20 (8-16); ASPARTATE AMINO TRANSFERASE 27 U/L (10-37); BILIRUBIN,TOTAL 0.4 MG/DL (0.1-1.0); BLOOD UREA NITROGEN 13 MG/DL (7-18); BUN/CREATININE RATIO 17.6 (6.6-38.0); CALCIUM 7.8 MG/DL (8.5-10.1); CHLORIDE 107 MMOL/L (99-107); CREATININE 0.74 MG/DL (0.40-0.90); GLUCOSE 266 MG/DL (70-104); MAGNESIUM 1.3 MG/DL (1.5-2.4); SODIUM 147 MMOL/L (135-145); TOTAL CARBON DIOXIDE 20.4 MMOL/L (24-32); TOTAL PROTEIN 5.2 G/DL (6.4-8.2); TRIGLYCERIDES 107 MG/DL (20-135); eGFR 79 ML/MIN
[2021-12-11 04:02] LABS: ABG BASE EXCESS -6.1 mmol/L (-2.0-2.0); ABG HCO3 18.7 mmol/L (22.0-26.0); ABG OXYGEN SATURATION 96.4 % (94-97); ABG PCO2 (T) 34.9 mmHg (32.0-45.0); ABG PO2 (T) 99.9 mmHg (75.0-100.0); FCOHb 0.3 % (0.0-3.9); FMetHb 0.2 % (0.0-1.5); FO2Hb 95.9 % (94-97); PATIENT TEMPERATURE 37.2; PEEP 5 cm H2O; RESPIRATORY RATE 12 b/min; TIDAL VOLUME 400 mL
[2021-12-11] MEDS: normal saline 1000ml 1,000 ML IV SCH ×2 (05:46→16:32)
[2021-12-11] MEDS: FENTANYL-0.9 % NACL/PF 100 ML IV PRN (06:46)
[2021-12-11 07:45] LABS: BURR CELLS 1+; PLATELET ESTIMATE NORMAL; TOTAL CELLS COUNTED 100
[2021-12-11 07:55] LABS: PHOSPHORUS 5.1 MG/DL (2.3-4.5)
[2021-12-11] MEDS: phenylephrine inj 50 MG in normal saline 250ml IV solN IV SCH (07:57)
[2021-12-11] MEDS: vancomycin/NS 1 GM ADD-VANTAGE 250 ML IV SCH (07:58)
[2021-12-11] MEDS: atorvastatin 20mg tablet PO SCH (07:59)
[2021-12-11] MEDS: pantoprazole 40mg Tablet.DR PO SCH (07:59)
[2021-12-11] MEDS: K and/or MAG REPLACEMENT MC SCH ×2 (08:00→20:00)
[2021-12-11] MEDS: aspirin 81mg tab.chew PO SCH (08:15)
[2021-12-11] MEDS: metroNIDAZOLE 500mg tablet PO SCH (08:15)
[2021-12-11] MEDS: NORepinephrine 8mg/ 250ml NS 250 ML IV SCH ×2 (08:50→12:29)
[2021-12-11] MEDS: piperacillin/tazo 3.375gm/50ml 50 ML IV SCH ×2 (09:39→16:12)
[2021-12-11] MEDS: acetaminophen 325mg tablet PO PRN (12:28)
[2021-12-11] MEDS: enoxaparin 40mg/0.4ml syringe SUBCUT SCH (20:33)
[2021-12-11] MEDS: insulin glargine (Lantus) pen - multi-dose SQ SCH (20:43)
[2021-12-11] MEDS: VANCOmycin 1250MG/NS 250ml Bag 250 ML IV SCH (20:45)
[2021-12-11] MEDS: HYDROcodone/acetaminophen 10/325mg tab PO PRN (22:36)
[2021-12-11] MEDS ORDERED: phenylephrine inj 50 MG in normal saline 250ml IV solN IV PRN (23:14)
[2021-12-12] VITALS (24 sets, daily range): BP systolic 99–160; BP diastolic 39–51
[2021-12-12] MEDS: piperacillin/tazo 3.375gm/50ml 50 ML IV SCH ×4 (00:54→23:40)
[2021-12-12] MEDS: HYDROcodone/acetaminophen 5mg/325mg tablet PO PRN ×2 (02:22→21:38)
[2021-12-12 02:59] LABS: BASOPHILS % (AUTO) 0.1 % (0-1); EOSINOPHILS % (AUTO) 0 % (0-6); HEMOGLOBIN 7.3 g/dl (12.0-16.0); LYMPHOCYTES % (AUTO) 13.5 % (21-51); MEAN CORPUSCULAR HEMOGLOBIN 30.4 PG (27.0-31.0); MEAN CORPUSCULAR HGB CONC 33.7 g/dL (33.0-36.5); MEAN CORPUSCULAR VOLUME 90.3 FL (78-98); MEAN PLATELET VOLUME 9.2 FL (7.4-10.4); MONOCYTES # (AUTO) 1.4 X10'3 (0-0.9); MONOCYTES % (AUTO) 9.6 % (2-12); NEUTROPHILS # (AUTO) 11.2 X10'3 (1.8-7.7); NEUTROPHILS % (AUTO) 76.8 % (42-75); PLATELET COUNT 210 X10'3 (140-440); RED CELL DISTRIBUTION WIDTH 13.6 % (11.5-14.5); WHITE BLOOD COUNT 14.6 X10'3 (4.5-11.0)
[2021-12-12 03:07] LABS: HEMATOCRIT 21.7 % (35.0-45.0)
[2021-12-12 03:11] LABS: ALANINE AMINOTRANSFERASE 16 U/L (12-78); ALBUMIN 2.1 G/DL (3.4-5.0); ALBUMIN/GLOBULIN RATIO 0.8 (1.1-1.5); ALKALINE PHOSPHATASE 33 IU/L (46-116); ANION GAP 6 (8-16); ASPARTATE AMINO TRANSFERASE 13 U/L (10-37); BILIRUBIN,TOTAL 0.2 MG/DL (0.1-1.0); BLOOD UREA NITROGEN 14 MG/DL (7-18); BUN/CREATININE RATIO 17.3 (6.6-38.0); CALCIUM 7.7 MG/DL (8.5-10.1); CHLORIDE 108 MMOL/L (99-107); CREATININE 0.81 MG/DL (0.40-0.90); GLUCOSE 213 MG/DL (70-104); MAGNESIUM 1.3 MG/DL (1.5-2.4); POTASSIUM 3.6 MMOL/L (3.5-5.1); SODIUM 142 MMOL/L (135-145); TOTAL CARBON DIOXIDE 28.2 MMOL/L (24-32); TOTAL PROTEIN 4.8 G/DL (6.4-8.2); eGFR 71 ML/MIN
[2021-12-12] MEDS: pantoprazole 40mg Tablet.DR PO SCH (07:19)
[2021-12-12] MEDS: HYDROcodone/acetaminophen 10/325mg tab PO PRN ×3 (07:20→19:30)
[2021-12-12] MEDS: atorvastatin 20mg tablet PO SCH (07:21)
[2021-12-12] MEDS: VANCOmycin 1250MG/NS 250ml Bag 250 ML IV SCH (07:23)
[2021-12-12] MEDS: aspirin 81mg tab.chew PO SCH (07:25)
[2021-12-12] MEDS: K and/or MAG REPLACEMENT MC SCH ×2 (07:25→20:00)
[2021-12-12] MEDS: insulin Lispro (HumaLOG) vial - multi-dose SQ SCH ×2 (08:42→13:43)
[2021-12-12 09:15] LABS: BASOPHILS % (AUTO) 0.2 % (0-1); EOSINOPHILS % (AUTO) 0 % (0-6); LYMPHOCYTES # (AUTO) 1.5 X10'3 (1.1-4.8); LYMPHOCYTES % (AUTO) 10.3 % (21-51); MEAN CORPUSCULAR HEMOGLOBIN 30.7 PG (27.0-31.0); MEAN CORPUSCULAR HGB CONC 33.8 g/dL (33.0-36.5); MEAN CORPUSCULAR VOLUME 90.8 FL (78-98); MEAN PLATELET VOLUME 8.9 FL (7.4-10.4); MONOCYTES # (AUTO) 1.5 X10'3 (0-0.9); MONOCYTES % (AUTO) 9.9 % (2-12); NEUTROPHILS # (AUTO) 11.9 X10'3 (1.8-7.7); NEUTROPHILS % (AUTO) 79.6 % (42-75); PLATELET COUNT 196 X10'3 (140-440); RED BLOOD COUNT 2.17 X10'6 (4.20-5.60); RED CELL DISTRIBUTION WIDTH 13.8 % (11.5-14.5); WHITE BLOOD COUNT 14.9 X10'3 (4.5-11.0)
[2021-12-12 09:21] LABS: HEMATOCRIT 19.7 % (35.0-45.0); HEMOGLOBIN 6.6 g/dl (12.0-16.0)
[2021-12-12] MEDS: normal saline 1000ml 1,000 ML IV SCH ×2 (12:20→15:11)
--- NOTE | 2021-12-12 12:20 | NUR ---
1 unit PRBC infusing for H/H 6.6/19.[address] Hewitt order. Wound pics obtained per policy.
--- NOTE | 2021-12-12 14:30 | NUR ---
Hospitalist Dr. Tinsley and ID Dr. Barrett here to see pt.
--- NOTE | 2021-12-12 18:12 | NUR ---
Problems reprioritized. Patient report given, questions answered & plan of care reviewed with Melanie CHRISTENSEN.
[2021-12-12] MEDS: insulin glargine (Lantus) pen - multi-dose SQ SCH (21:33)
[2021-12-12] MEDS: enoxaparin 40mg/0.4ml syringe SUBCUT SCH (21:38)
[2021-12-13] VITALS (19 sets, daily range): BP systolic 94–150; BP diastolic 31–70
[2021-12-13 02:29] LABS: BASOPHILS % (AUTO) 0.1 % (0-1); EOSINOPHILS % (AUTO) 0.1 % (0-6); HEMATOCRIT 22.5 % (35.0-45.0); HEMOGLOBIN 7.4 g/dl (12.0-16.0); LYMPHOCYTES # (AUTO) 1.8 X10'3 (1.1-4.8); LYMPHOCYTES % (AUTO) 11.8 % (21-51); MEAN CORPUSCULAR HEMOGLOBIN 29.8 PG (27.0-31.0); MEAN CORPUSCULAR HGB CONC 32.7 g/dL (33.0-36.5); MEAN CORPUSCULAR VOLUME 91.1 FL (78-98); MEAN PLATELET VOLUME 9.3 FL (7.4-10.4); MONOCYTES # (AUTO) 1.4 X10'3 (0-0.9); MONOCYTES % (AUTO) 9.3 % (2-12); NEUTROPHILS # (AUTO) 12.1 X10'3 (1.8-7.7); NEUTROPHILS % (AUTO) 78.7 % (42-75); PLATELET COUNT 207 X10'3 (140-440); RED BLOOD COUNT 2.47 X10'6 (4.20-5.60); RED CELL DISTRIBUTION WIDTH 14.1 % (11.5-14.5); WHITE BLOOD COUNT 15.4 X10'3 (4.5-11.0)
[2021-12-13] MEDS: HYDROcodone/acetaminophen 10/325mg tab PO PRN ×4 (03:00→20:44)
[2021-12-13 03:06] LABS: ALANINE AMINOTRANSFERASE 15 U/L (12-78); ALBUMIN 1.9 G/DL (3.4-5.0); ALBUMIN/GLOBULIN RATIO 0.7 (1.1-1.5); ALKALINE PHOSPHATASE 34 IU/L (46-116); ANION GAP 8 (8-16); ASPARTATE AMINO TRANSFERASE 15 U/L (10-37); BILIRUBIN,TOTAL 0.3 MG/DL (0.1-1.0); BLOOD UREA NITROGEN 19 MG/DL (7-18); BUN/CREATININE RATIO 11.1 (6.6-38.0); CALCIUM 7.9 MG/DL (8.5-10.1); CHLORIDE 106 MMOL/L (99-107); CREATININE 1.71 MG/DL (0.40-0.90); GLUCOSE 164 MG/DL (70-104); MAGNESIUM 1.6 MG/DL (1.5-2.4); PHOSPHORUS 3.8 MG/DL (2.3-4.5); POTASSIUM 3.3 MMOL/L (3.5-5.1); SODIUM 140 MMOL/L (135-145); TOTAL CARBON DIOXIDE 26.3 MMOL/L (24-32); TOTAL PROTEIN 4.8 G/DL (6.4-8.2); eGFR 30 ML/MIN
--- NOTE | 2021-12-13 04:20 | NUR ---
lab results posted at this time K+3.3. No potassium replacement orders noted. Call in to Dr. Quintanilla with orders noted to implement potassium/mag replacement protocol
[2021-12-13] MEDS ORDERED: magnesium 4gm in 100ml NS 100 ML IV PRN (04:35)
[2021-12-13] MEDS ORDERED: potassium CL 10mEq/100ml bag 100 ML IV PRN (04:35)
[2021-12-13] MEDS ORDERED: magnesium 2GM in 50ml NS 50 ML IV PRN (04:35)
[2021-12-13] MEDS: potassium Cl 20mEq/100mL bag 100 ML IV PRN ×4 (04:39→08:39)
--- NOTE | 2021-12-13 06:59 | NUR ---
Patient in room CICU 2009. I have received report from Melanie CHRISTENSEN and had the opportunity to ask questions and assume patient care.
[2021-12-13] MEDS: K and/or MAG REPLACEMENT MC SCH ×2 (07:24→20:00)
[2021-12-13] MEDS ORDERED: VANCOMYCIN LEVEL IV ONE (07:30)
[2021-12-13] MEDS: atorvastatin 20mg tablet PO SCH (07:59)
[2021-12-13] MEDS: piperacillin/tazo 3.375gm/50ml 50 ML IV SCH ×2 (07:59→15:19)
[2021-12-13] MEDS: pantoprazole 40mg Tablet.DR PO SCH (07:59)
[2021-12-13] MEDS: aspirin 81mg tab.chew PO SCH (07:59)
[2021-12-13] MEDS: insulin Lispro (HumaLOG) vial - multi-dose SQ SCH ×3 (09:54→20:29)
--- NOTE | 2021-12-13 12:33 | NUR ---
Reassessment: Pt s/p L fem-tibioperitoneal trunk bypass with composite graft 12/10 remained NPO until this AM advanced to carb controlled/heart healthy diet pending PO intake documentation per EMR. RD d/w RN for removal of carb controlled diet if MD agreeable given A1C 6.1% and 8 days almost no nutrition this admit. LBM 12/06 though pt had BM this AM per RN. Given 8 days poor nutrition related to restrictive diet vs NPO, mild weakness, and BLE 1+ edema pt meets minimum non-severe malnutrition criteria; MD notified. Will monitor for PO trends and further nutrition intervention needs this admit. Rec: 1. continue heart healthy diet; remove carb controlled restriction A1C 6.1% almost no nutrition intake initial 8 days this admit 2. monitor for PO trends post-op; encourage PO 3. MVI supplementation 4. routine bowel care 5. weekly wts Addendum: 12/13/21 at [address] Amended: Links added. Addendum: 12/13/21 at [address] Rec: 1. continue heart healthy diet; remove carb controlled restriction A1C 6.1% almost no nutrition intake initial 8 days this admit 2. monitor for PO trends post-op; encourage PO 3. MVI supplementation 4. IF PO poor post-op; consider supplemental EN given malnutrition status this admit 5. routine bowel care 6. weekly wts
--- NOTE | 2021-12-13 14:00 | NUR ---
Dr. Coello at bedside, discussed that arterial US was done and report not back yet. MD stated he would review results later.
--- NOTE | 2021-12-13 14:42 | NUR ---
Received report from AMPARO Jones CICU, pt to tx to room 3013A.
--- NOTE | 2021-12-13 14:54 | NUR ---
Patient report given to Steffi CHRISTENSEN. Patient going to room 3013A.
--- NOTE | 2021-12-13 15:30 | NUR ---
Patient refusing to have F/C removed at this time. Wishes to keep it awhile longer. Explained risks of leaving F/C in to patient. Patient stated she will have it taken out later. Becca Kapadia RN.
--- NOTE | 2021-12-13 15:45 | NUR ---
Received pt via bed to 3013A. Call light in reach bed low. Discussed continuing POC, pt verbalizes understanding.
--- NOTE | 2021-12-13 15:47 | NUR ---
Patient transferred to room 3013A with all belongings. Steffi CHRISTENSEN at bedside to receive pt.
[2021-12-13] MEDS ORDERED: enoxaparin 30mg/0.3ml syringe SUBCUT SCH (17:33)
--- NOTE | 2021-12-13 18:41 | NUR ---
Problems reprioritized. Patient report given, questions answered & plan of care reviewed with AMPARO Yanez.
[2021-12-13] MEDS: insulin glargine (Lantus) pen - multi-dose SQ SCH (21:34)
[2021-12-14] MEDS: normal saline 1000ml 1,000 ML IV SCH ×3 (00:56→15:05)
[2021-12-14] MEDS: piperacillin/tazo 3.375gm/50ml 50 ML IV SCH ×3 (01:15→16:47)
[2021-12-14 02:00] VITALS: BP 122/63
[2021-12-14] MEDS: HYDROcodone/acetaminophen 10/325mg tab PO PRN ×3 (03:02→22:21)
--- NOTE | 2021-12-14 06:54 | NUR ---
Problems reprioritized. Patient report given, questions answered & plan of care reviewed with AMPARO Gomez.
[2021-12-14 07:18] VITALS: BP 110/47
[2021-12-14 07:29] LABS: BASOPHILS % (AUTO) 0.4 % (0-1); EOSINOPHILS # (AUTO) 0.2 X10'3 (0-0.9); EOSINOPHILS % (AUTO) 1.7 % (0-6); HEMATOCRIT 22.9 % (35.0-45.0); HEMOGLOBIN 7.6 g/dl (12.0-16.0); LYMPHOCYTES # (AUTO) 2.2 X10'3 (1.1-4.8); LYMPHOCYTES % (AUTO) 18.9 % (21-51); MEAN CORPUSCULAR HEMOGLOBIN 30.7 PG (27.0-31.0); MEAN CORPUSCULAR HGB CONC 33.3 g/dL (33.0-36.5); MEAN PLATELET VOLUME 9.9 FL (7.4-10.4); MONOCYTES % (AUTO) 8.8 % (2-12); NEUTROPHILS # (AUTO) 8.1 X10'3 (1.8-7.7); NEUTROPHILS % (AUTO) 70.2 % (42-75); PLATELET COUNT 245 X10'3 (140-440); RED BLOOD COUNT 2.49 X10'6 (4.20-5.60); RED CELL DISTRIBUTION WIDTH 14.8 % (11.5-14.5); WHITE BLOOD COUNT 11.5 X10'3 (4.5-11.0)
[2021-12-14 07:51] LABS: ALANINE AMINOTRANSFERASE 16 U/L (12-78); ALBUMIN/GLOBULIN RATIO 0.6 (1.1-1.5); ALKALINE PHOSPHATASE 41 IU/L (46-116); ANION GAP 9 (8-16); ASPARTATE AMINO TRANSFERASE 17 U/L (10-37); BILIRUBIN,TOTAL 0.3 MG/DL (0.1-1.0); BLOOD UREA NITROGEN 23 MG/DL (7-18); BUN/CREATININE RATIO 11.1 (6.6-38.0); CALCIUM 8.2 MG/DL (8.5-10.1); CHLORIDE 109 MMOL/L (99-107); CREATININE 2.07 MG/DL (0.40-0.90); GLUCOSE 92 MG/DL (70-104); MAGNESIUM 1.8 MG/DL (1.5-2.4); PHOSPHORUS 2.9 MG/DL (2.3-4.5); POTASSIUM 4.1 MMOL/L (3.5-5.1); SODIUM 143 MMOL/L (135-145); TOTAL CARBON DIOXIDE 24.6 MMOL/L (24-32); TOTAL PROTEIN 5.5 G/DL (6.4-8.2); eGFR 24 ML/MIN
[2021-12-14] MEDS: K and/or MAG REPLACEMENT MC SCH ×2 (08:00→20:00)
[2021-12-14] MEDS: aspirin 81mg tab.chew PO SCH (10:41)
[2021-12-14] MEDS: atorvastatin 20mg tablet PO SCH (10:41)
[2021-12-14] MEDS: pantoprazole 40mg Tablet.DR PO SCH (10:41)
[2021-12-14] MEDS: heparin, porcine 5000 units/ml vial SQ SCH ×2 (10:42→20:15)
[2021-12-14 11:56] VITALS: BP 150/57
--- NOTE | 2021-12-14 14:47 | NUR ---
WOUND INFECTION EDUCATION PROVIDED BY WOUND CARE 1. Patient instructed to call their primary doctor, or go the ED immediately if any of the following symptoms occur: * Increased pain in wound * Increase in drainage from the wound * Redness in the skin surrounding the wound * Warmth in the skin surrounding the wound * Bleeding from the wound * Temperature of 101 or greater 2. If any of these occur while in the hospital tell a nurse immediately. Addendum: 12/14/21 at 1447 by Anisa Olvera RN Amended: Links added.
[2021-12-14] MEDS: morphine 2 MG/ML inj. syringe IV PRN (14:59)
[2021-12-14 15:27] VITALS: BP 122/45
--- NOTE | 2021-12-14 16:51 | NUR ---
Mendieta removed per orders. Pt. oked it as she was refusing before. Educated pt. on the need to try to void and to tell Rn if void or uncomfortably.
[2021-12-14 18:00] VITALS: BP 138/35
--- NOTE | 2021-12-14 18:30 | NUR ---
Patient in room PCU 3013. I have received report from dane and had the opportunity to ask questions and assume patient care.
--- NOTE | 2021-12-14 18:47 | NUR ---
Gave bedside report with Kamlesh WEINER. He is aware f/c recently removed and pt. has not voided yet.
[2021-12-14] MEDS: insulin glargine (Lantus) pen - multi-dose SQ SCH (20:56)
[2021-12-14 22:00] VITALS: BP 156/53
[2021-12-15] MEDS: piperacillin/tazo 3.375gm/50ml 50 ML IV SCH ×3 (00:56→16:59)
[2021-12-15 02:00] VITALS: BP 151/54
[2021-12-15 06:00] VITALS: BP 149/57
--- NOTE | 2021-12-15 06:08 | NUR ---
Problems reprioritized. Patient report given, questions answered & plan of care reviewed with
--- NOTE | 2021-12-15 06:30 | NUR ---
Patient in room PCU 3013. I have received report from REGINE Whitlock and had the opportunity to ask questions and assume patient care.
[2021-12-15 07:11] LABS: BASOPHILS # (AUTO) 0.1 X10'3 (0-0.2); BASOPHILS % (AUTO) 0.5 % (0-1); EOSINOPHILS # (AUTO) 0.1 X10'3 (0-0.9); EOSINOPHILS % (AUTO) 1.2 % (0-6); HEMOGLOBIN 8.1 g/dl (12.0-16.0); LYMPHOCYTES # (AUTO) 1.4 X10'3 (1.1-4.8); LYMPHOCYTES % (AUTO) 12.1 % (21-51); MEAN CORPUSCULAR HEMOGLOBIN 30.8 PG (27.0-31.0); MEAN CORPUSCULAR HGB CONC 33.6 g/dL (33.0-36.5); MEAN CORPUSCULAR VOLUME 91.6 FL (78-98); MEAN PLATELET VOLUME 9.6 FL (7.4-10.4); MONOCYTES # (AUTO) 0.9 X10'3 (0-0.9); MONOCYTES % (AUTO) 8.4 % (2-12); NEUTROPHILS # (AUTO) 8.8 X10'3 (1.8-7.7); NEUTROPHILS % (AUTO) 77.8 % (42-75); PLATELET COUNT 299 X10'3 (140-440); RED BLOOD COUNT 2.62 X10'6 (4.20-5.60); RED CELL DISTRIBUTION WIDTH 14.2 % (11.5-14.5); WHITE BLOOD COUNT 11.2 X10'3 (4.5-11.0)
[2021-12-15 07:30] LABS: ALANINE AMINOTRANSFERASE 15 U/L (12-78); ALBUMIN 2.1 G/DL (3.4-5.0); ALBUMIN/GLOBULIN RATIO 0.6 (1.1-1.5); ALKALINE PHOSPHATASE 43 IU/L (46-116); ANION GAP 13 (8-16); ASPARTATE AMINO TRANSFERASE 18 U/L (10-37); BILIRUBIN,TOTAL 0.5 MG/DL (0.1-1.0); BLOOD UREA NITROGEN 23 MG/DL (7-18); BUN/CREATININE RATIO 11.5 (6.6-38.0); CALCIUM 8.4 MG/DL (8.5-10.1); CHLORIDE 108 MMOL/L (99-107); GLUCOSE 170 MG/DL (70-104); MAGNESIUM 1.7 MG/DL (1.5-2.4); PHOSPHORUS 2.6 MG/DL (2.3-4.5); POTASSIUM 3.7 MMOL/L (3.5-5.1); SODIUM 145 MMOL/L (135-145); TOTAL PROTEIN 5.9 G/DL (6.4-8.2); eGFR 25 ML/MIN
[2021-12-15] MEDS: heparin, porcine 5000 units/ml vial SQ SCH ×2 (07:58→19:32)
[2021-12-15] MEDS: aspirin 81mg tab.chew PO SCH (07:58)
[2021-12-15] MEDS: atorvastatin 20mg tablet PO SCH (07:58)
[2021-12-15] MEDS: pantoprazole 40mg Tablet.DR PO SCH (07:59)
[2021-12-15] MEDS: K and/or MAG REPLACEMENT MC SCH ×2 (08:00→19:36)
[2021-12-15] MEDS: HYDROcodone/acetaminophen 10/325mg tab PO PRN ×2 (08:42→13:29)
[2021-12-15 11:00] VITALS: BP 151/49
[2021-12-15] MEDS: normal saline 1000ml 1,000 ML IV SCH ×2 (12:43→12:56)
[2021-12-15 15:30] VITALS: BP 135/66
[2021-12-15 18:00] VITALS: BP 179/54
--- NOTE | 2021-12-15 18:30 | NUR ---
Patient in room PCU 3013. I have received report from tye and had the opportunity to ask questions and assume patient care.
[2021-12-15] MEDS: insulin Lispro (HumaLOG) vial - multi-dose SQ SCH (19:30)
[2021-12-15] MEDS: insulin glargine (Lantus) pen - multi-dose SQ SCH (21:20)
[2021-12-15 22:00] VITALS: BP 141/44
[2021-12-16] VITALS (18 sets, daily range): BP systolic 134–184; BP diastolic 47–82
[2021-12-16] MEDS: HYDROcodone/acetaminophen 10/325mg tab PO PRN ×3 (00:12→22:04)
[2021-12-16] MEDS: normal saline 1000ml 1,000 ML IV SCH ×4 (00:13→20:56)
[2021-12-16] MEDS: piperacillin/tazo 3.375gm/50ml 50 ML IV SCH ×3 (00:44→16:21)
--- NOTE | 2021-12-16 06:34 | NUR ---
Patient in room PCU 3013. I have received report from REGINE Whitlock and had the opportunity to ask questions and assume patient care.
--- NOTE | 2021-12-16 06:35 | NUR ---
Problems reprioritized. Patient report given, questions answered & plan of care reviewed with
[2021-12-16 06:44] LABS: BASOPHILS # (AUTO) 0.1 X10'3 (0-0.2); BASOPHILS % (AUTO) 0.8 % (0-1); EOSINOPHILS # (AUTO) 0.3 X10'3 (0-0.9); EOSINOPHILS % (AUTO) 2.4 % (0-6); HEMATOCRIT 26.8 % (35.0-45.0); HEMOGLOBIN 9.1 g/dl (12.0-16.0); LYMPHOCYTES # (AUTO) 1.7 X10'3 (1.1-4.8); LYMPHOCYTES % (AUTO) 15.7 % (21-51); MEAN CORPUSCULAR HEMOGLOBIN 30.8 PG (27.0-31.0); MEAN CORPUSCULAR HGB CONC 33.9 g/dL (33.0-36.5); MEAN CORPUSCULAR VOLUME 90.9 FL (78-98); MEAN PLATELET VOLUME 9.4 FL (7.4-10.4); MONOCYTES # (AUTO) 1.2 X10'3 (0-0.9); MONOCYTES % (AUTO) 10.9 % (2-12); NEUTROPHILS # (AUTO) 7.6 X10'3 (1.8-7.7); NEUTROPHILS % (AUTO) 70.2 % (42-75); PLATELET COUNT 355 X10'3 (140-440); RED BLOOD COUNT 2.95 X10'6 (4.20-5.60); RED CELL DISTRIBUTION WIDTH 14.5 % (11.5-14.5); WHITE BLOOD COUNT 10.9 X10'3 (4.5-11.0)
[2021-12-16 06:59] LABS: ALANINE AMINOTRANSFERASE 20 U/L (12-78); ALBUMIN 2.4 G/DL (3.4-5.0); ALBUMIN/GLOBULIN RATIO 0.6 (1.1-1.5); ALKALINE PHOSPHATASE 48 IU/L (46-116); ANION GAP 12 (8-16); ASPARTATE AMINO TRANSFERASE 24 U/L (10-37); BILIRUBIN,TOTAL 0.6 MG/DL (0.1-1.0); BLOOD UREA NITROGEN 19 MG/DL (7-18); BUN/CREATININE RATIO 10.3 (6.6-38.0); CALCIUM 8.7 MG/DL (8.5-10.1); CHLORIDE 107 MMOL/L (99-107); CREATININE 1.84 MG/DL (0.40-0.90); GLUCOSE 165 MG/DL (70-104); MAGNESIUM 1.7 MG/DL (1.5-2.4); POTASSIUM 3.6 MMOL/L (3.5-5.1); SODIUM 145 MMOL/L (135-145); TOTAL CARBON DIOXIDE 26.3 MMOL/L (24-32); TOTAL PROTEIN 6.4 G/DL (6.4-8.2); eGFR 28 ML/MIN
[2021-12-16] MEDS: heparin, porcine 5000 units/ml vial SQ SCH ×2 (08:00→20:00)
[2021-12-16] MEDS: K and/or MAG REPLACEMENT MC SCH ×2 (08:00→20:00)
[2021-12-16] MEDS: aspirin 81mg tab.chew PO SCH (08:05)
[2021-12-16] MEDS: atorvastatin 20mg tablet PO SCH (08:05)
[2021-12-16] MEDS: pantoprazole 40mg Tablet.DR PO SCH (08:05)
[2021-12-16] MEDS: insulin Lispro (HumaLOG) vial - multi-dose SQ SCH (08:43)
--- NOTE | 2021-12-16 14:22 | NUR ---
F/u 12/16: Pt placed on clear liquids this AM pending OR for amputation of L foot three toes today per EMR. No meal intake documentation since advanced to solids outside carbs consumed which mostly remains 0 w/ occasional carb intake past 3 days per EMR; continues to not meet nutrition needs day 11 this admit. Pt seen by DIMITRI at bedside; pt reports tries to follow low carb diet at home enjoys salads/sandwiches/fresh fruit. Pt is agreeable to pastry sous chef salad/sandwich BID, fresh fruit TIDW, and strawberry Nish smoothie BIDBD once diet advances post-op. RD provided verbal high protein diet ed given wound healing needs this admit and encouraged pt to contact dietitian's office if further questions/concerns. DIMITRI d/w MD regarding liberalizing to regular diet post-op given poor nutrition status since admit; MD agreeable. LBM 12/16. Will monitor for further nutrition intervention needs post-op. Rec: 1. advance to regular diet post-op; encourage PO 2. honor pt food preferences once diet advances; pastry sous chef salad w/ sandwich BIDLD, fruit TIDWM 3. strawberry Nish smoothie BIDBD once diet advances to at least full liquids post-op; pending MD verification in EMR 4. MVI supplementation 5. routine bowel care 6. weekly wts Addendum: 12/16/21 at [address] Amended: Links added.
[2021-12-16] MEDS ORDERED: bacitracin 15gm ointment TP ONE ×2 (17:10→18:47)
[2021-12-16] MEDS ORDERED: vancomycin 1,000mg inj ONE (17:10)
[2021-12-16] MEDS ORDERED: BUPIVAcaine/PF 2.5 mg/ml (0.25%) 30ml vial ONE (17:11)
[2021-12-16] MEDS: JUVEN Smoothie Arginine/Glut./Ca2+Bmb (Juven 19.3pkt) 240ml cup PO SCH (17:30)
[2021-12-16] MEDS ORDERED: fentaNYL/PF 50MCG/1 ML 2ML syringe ONE (17:36)
[2021-12-16] MEDS ORDERED: propofol inj 20 ML IV ONE (17:37)
[2021-12-16] MEDS ORDERED: midazolam 1 mg/ML 2ml injection ONE (17:37)
--- NOTE | 2021-12-16 18:21 | NUR ---
Problems reprioritized. Patient report given, questions answered & plan of care reviewed with AMPARO Catherine.
[2021-12-16] MEDS ORDERED: ePHEDrine 50MG/ML INJ. ONE (18:37)
[2021-12-16] MEDS ORDERED: proCHLORperazine 10 MG/2 ml inj IV PRN (18:45)
[2021-12-16] MEDS ORDERED: ondansetron/PF 4mg/2ml inj IV PRN (18:45)
[2021-12-16] MEDS ORDERED: morphine 4 MG/ML inj SYRINge IV PRN (18:45)
[2021-12-16] MEDS ORDERED: meperidine/PF 25mg/ml syringe IV PRN ×3 (18:45)
[2021-12-16] MEDS ORDERED: ringers solution, lacted 1,000 ML IV SCH (18:45)
[2021-12-16] MEDS ORDERED: morphine 2 MG/ML inj. syringe IV PRN (18:45)
--- NOTE | 2021-12-16 19:11 | NUR ---
PATIENT IN OR
--- NOTE | 2021-12-16 19:26 | NUR ---
PATIENT HAS MET ALL CRITERIA FOR TRANSFER TO PCU FLOOR. VSS. DRESSINGS INTACT. BED LOW, CALL LIGHT PRESENT AND 2 RAILS UP. RN PRESENT TO ACCEPT CARE OF PATIENT AND REPORT HAS BEEN CALLED. ALL QUESTIONS ANSWERED TO ACCEPTING RN. Addendum: 12/16/21 at 1933 by Ramírez Bernabe RN Amended: Links added.
--- NOTE | 2021-12-16 20:22 | NUR ---
HEPARIN NOT ADMINISTERED, FRESH POST OP PATIENT. LEFT GREAT TOE AMPUTATION ON 12/16/21
[2021-12-16] MEDS: insulin glargine (Lantus) pen - multi-dose SQ SCH (21:00)
[2021-12-17] VITALS (9 sets, daily range): BP systolic 114–148; BP diastolic 40–58
[2021-12-17] MEDS: piperacillin/tazo 3.375gm/50ml 50 ML IV SCH ×3 (00:36→16:32)
[2021-12-17] MEDS: acetaminophen 325mg tablet PO PRN (00:38)
[2021-12-17] MEDS: HYDROcodone/acetaminophen 10/325mg tab PO PRN ×4 (05:36→20:45)
[2021-12-17] MEDS: normal saline 1000ml 1,000 ML IV SCH ×2 (05:37→12:56)
--- NOTE | 2021-12-17 06:33 | NUR ---
Problems reprioritized. Patient report given, questions answered & plan of care reviewed with GILLES CHRISTENSEN.
[2021-12-17 06:57] LABS: BASOPHILS # (AUTO) 0.1 X10'3 (0-0.2); BASOPHILS % (AUTO) 0.5 % (0-1); EOSINOPHILS # (AUTO) 0.2 X10'3 (0-0.9); EOSINOPHILS % (AUTO) 1.5 % (0-6); HEMOGLOBIN 7.1 g/dl (12.0-16.0); LYMPHOCYTES # (AUTO) 1.2 X10'3 (1.1-4.8); MEAN CORPUSCULAR HEMOGLOBIN 30.6 PG (27.0-31.0); MEAN CORPUSCULAR HGB CONC 33.5 g/dL (33.0-36.5); MEAN CORPUSCULAR VOLUME 91.5 FL (78-98); MEAN PLATELET VOLUME 9.3 FL (7.4-10.4); MONOCYTES # (AUTO) 1.1 X10'3 (0-0.9); MONOCYTES % (AUTO) 10.1 % (2-12); NEUTROPHILS # (AUTO) 8.4 X10'3 (1.8-7.7); NEUTROPHILS % (AUTO) 76.9 % (42-75); PLATELET COUNT 323 X10'3 (140-440); RED BLOOD COUNT 2.33 X10'6 (4.20-5.60); RED CELL DISTRIBUTION WIDTH 14.7 % (11.5-14.5); WHITE BLOOD COUNT 10.9 X10'3 (4.5-11.0)
[2021-12-17 07:11] LABS: HEMATOCRIT 21.3 % (35.0-45.0)
[2021-12-17 07:22] LABS: ALANINE AMINOTRANSFERASE 15 U/L (12-78); ALBUMIN 1.8 G/DL (3.4-5.0); ALBUMIN/GLOBULIN RATIO 0.5 (1.1-1.5); ALKALINE PHOSPHATASE 38 IU/L (46-116); ANION GAP 9 (8-16); ASPARTATE AMINO TRANSFERASE 15 U/L (10-37); BILIRUBIN,TOTAL 0.4 MG/DL (0.1-1.0); BLOOD UREA NITROGEN 14 MG/DL (7-18); CALCIUM 7.5 MG/DL (8.5-10.1); CHLORIDE 107 MMOL/L (99-107); CREATININE 1.56 MG/DL (0.40-0.90); GLUCOSE 137 MG/DL (70-104); MAGNESIUM 1.4 MG/DL (1.5-2.4); PHOSPHORUS 3.6 MG/DL (2.3-4.5); POTASSIUM 3.1 MMOL/L (3.5-5.1); SODIUM 142 MMOL/L (135-145); TOTAL CARBON DIOXIDE 25.7 MMOL/L (24-32); TOTAL PROTEIN 5.3 G/DL (6.4-8.2); eGFR 33 ML/MIN
[2021-12-17] MEDS: JUVEN Smoothie Arginine/Glut./Ca2+Bmb (Juven 19.3pkt) 240ml cup PO SCH ×2 (07:30→17:30)
--- NOTE | 2021-12-17 07:38 | NUR ---
Paged PAGER ID: [phone] MESSAGE: [phone]. Michelle Guerrero. Critical H/H 7.05/14.3. Reina Dunn [phone]
[2021-12-17] MEDS: K and/or MAG REPLACEMENT MC SCH ×2 (08:00→19:33)
[2021-12-17] MEDS: heparin, porcine 5000 units/ml vial SQ SCH ×2 (08:00→20:45)
[2021-12-17] MEDS: atorvastatin 20mg tablet PO SCH (09:34)
[2021-12-17] MEDS: aspirin 81mg tab.chew PO SCH (09:34)
[2021-12-17] MEDS: pantoprazole 40mg Tablet.DR PO SCH (09:34)
[2021-12-17] MEDS ORDERED: magnesium Cl slow-release 64mg tablet PO PRN (10:05)
[2021-12-17] MEDS ORDERED: POTASSIUM BICARB 20meq eff tab 20 MEQ TABLET.EFF PO PRN ×2 (10:05)
[2021-12-17] MEDS ORDERED: HYDR-3972 PO ×2 (16:12)
[2021-12-17] MEDS ORDERED: ATOR20TA66 PO ×2 (16:12)
[2021-12-17] MEDS ORDERED: ASPI81TA53 PO ×2 (16:12)
[2021-12-17] MEDS ORDERED: AMOX-117 PO (16:12)
--- NOTE | 2021-12-17 17:00 | NUR ---
D/c'd W[place] per MD orders in anticipation for pt going home today. Cleansed and replaced island dressing on abd. Covered bilat groins with gauze and tegaderm. Left leg FELIX.
--- NOTE | 2021-12-17 17:00 | NUR ---
pt refused 1700 bg check - education provided. Pt verbalized understanding.
--- NOTE | 2021-12-17 18:17 | NUR ---
Patient in room PCU 3013. I have received report from NICOLAS CHRISTENSEN and had the opportunity to ask questions and assume patient care.
--- NOTE | 2021-12-17 18:30 | NUR ---
Orientee documentation: I have reviewed and agree with all interventions, assessments performed and documented by AMPARO Melo.
--- NOTE | 2021-12-17 18:45 | NUR ---
Problems reprioritized. Patient report given, questions answered & plan of care reviewed with AMPARO Catherine.
--- NOTE | 2021-12-17 21:05 | NUR ---
PATIENT DISCHARGED HOME WITH FAMILY MEMBER. TRANSPORTED VIA PRIVATE CAR AND INSTRUCTIONS GIVEN DIRECTED BY DOCTOR, MEDICATIONS FAXED TO PHARMACY. VSS AND NO SIGN OF DISTRESS.
== END 2021-12-17 22:17 | disposition home or self-care (01) | DRG 169 ==
LOC: ER 15:37 → ED HOLD 19:37 → ORTHO 4S 23:44 → PAS IN 12-07 18:10 → CICU 2S 12-07 21:45 → PCU 3S 12-13 15:45
PROVIDERS: ADMIT Internal Medicine; ATTEND Family Medicine
PROC: B4201ZZ Computerized Tomography (CT Scan) of Abdominal Aorta using Low Osmolar Contrast (ICD-10-PCS; 2021-12-05)
PROC: B4241ZZ Computerized Tomography (CT Scan) of Superior Mesenteric Artery using Low Osmolar Contrast (ICD-10-PCS; 2021-12-05)
PROC: B4281ZZ Computerized Tomography (CT Scan) of Bilateral Renal Arteries using Low Osmolar Contrast (ICD-10-PCS; 2021-12-05)
PROC: B42C1ZZ Computerized Tomography (CT Scan) of Pelvic Arteries using Low Osmolar Contrast (ICD-10-PCS; 2021-12-05)
PROC: B42H1ZZ Computerized Tomography (CT Scan) of Bilateral Lower Extremity Arteries using Low Osmolar Contrast (ICD-10-PCS; 2021-12-05)
PROC: B4211ZZ Computerized Tomography (CT Scan) of Celiac Artery using Low Osmolar Contrast (ICD-10-PCS; 2021-12-05)
PROC: 4A02XM4 Measurement of Cardiac Total Activity, External Approach (ICD-10-PCS; 2021-12-06)
PROC: 3E033HZ Introduction of Radioactive Substance into Peripheral Vein, Percutaneous Approach (ICD-10-PCS; 2021-12-06)
PROC: 03CN0ZZ Extirpation of Matter from Left External Carotid Artery, Open Approach (ICD-10-PCS; 2021-12-07)
PROC: 03CL0ZZ Extirpation of Matter from Left Internal Carotid Artery, Open Approach (ICD-10-PCS; 2021-12-07)
PROC: 03UL0KZ Supplement Left Internal Carotid Artery with Nonautologous Tissue Substitute, Open Approach (ICD-10-PCS; 2021-12-07)
PROC: 03UN0KZ Supplement Left External Carotid Artery with Nonautologous Tissue Substitute, Open Approach (ICD-10-PCS; 2021-12-07)
PROC: 03UJ0KZ Supplement Left Common Carotid Artery with Nonautologous Tissue Substitute, Open Approach (ICD-10-PCS; 2021-12-07)
PROC: 4A10X4Z Monitoring of Central Nervous Electrical Activity, External Approach (ICD-10-PCS; 2021-12-07)
PROC: 03CJ0ZZ Extirpation of Matter from Left Common Carotid Artery, Open Approach (ICD-10-PCS; principal; 2021-12-07 18:46)
PROC: 04100JK Bypass Abdominal Aorta to Bilateral Femoral Arteries with Synthetic Substitute, Open Approach (ICD-10-PCS; 2021-12-10)
PROC: 041L0JL Bypass Left Femoral Artery to Popliteal Artery with Synthetic Substitute, Open Approach (ICD-10-PCS; 2021-12-10)
PROC: 041L09L Bypass Left Femoral Artery to Popliteal Artery with Autologous Venous Tissue, Open Approach (ICD-10-PCS; 2021-12-10)
PROC: 30233N1 Transfusion of Nonautologous Red Blood Cells into Peripheral Vein, Percutaneous Approach (ICD-10-PCS; 2021-12-12)
PROC: 0Y6Q0Z0 Detachment at Left 1st Toe, Complete, Open Approach (ICD-10-PCS; 2021-12-16)
DX: E11.52 Type 2 diabetes mellitus with diabetic peripheral angiopathy with gangrene (principal); N17.9 Acute kidney failure, unspecified; I65.23 Occlusion and stenosis of bilateral carotid arteries; D72.829 Elevated white blood cell count, unspecified; Z20.822 Contact with and (suspected) exposure to COVID-19; J44.9 Chronic obstructive pulmonary disease, unspecified; F12.90 Cannabis use, unspecified, uncomplicated; R09.89 Other specified symptoms and signs involving the circulatory and respiratory systems; K80.20 Calculus of gallbladder without cholecystitis without obstruction; K21.9 Gastro-esophageal reflux disease without esophagitis; I70.0 Atherosclerosis of aorta; F17.210 Nicotine dependence, cigarettes, uncomplicated; I70.203 Unspecified atherosclerosis of native arteries of extremities, bilateral legs; I10 Essential (primary) hypertension; Z95.5 Presence of coronary angioplasty implant and graft; Z87.442 Personal history of urinary calculi; Z79.899 Other long term (current) drug therapy; Z79.4 Long term (current) use of insulin
CPT/HCPCS: 36415; 36430; 36600; 71045; 73590; 73630; 74177; 75635; 76000; 78452; 80053; 80061; 80202; 82803; 82948; 83036; 83605; 83735; 84100; 84145; 84443; 84478; 85007; 85018; 85025; 85610; 85730; 86885; 86900; 86901; 86920; 87040; 87070; 87081; 87811; 93005; 93017; 93306; 93880; 93922; 93926; 93970; 94002; 94003; 94640; 94760; 95813; 95816; 96374; 96375; 97110; 97116; 97162; 97530; 99291; A4615; A4618; A4620; A6213; A6222; A6258; A6402; A6446; A6449; A6455; A7000; A9500; C1758; C1768; C1887; G0378; J0280; J0690; J0694; J1100; J1644; J1650; J1815; J2175; J2250; J2270; J2370; J2405; J2543; J2704; J2785; J3010; J3370; J3480; J3490; J7030; J7040; J7042; J7050; J7070; J7120; L8670; P9016; P9045; Q9967

== ENCOUNTER 2021-12-29 10:03 | Inpatient (IN) | payer MEDICAID ==
[~2021-12-29] VITALS: Ht 165.1 cm; Wt 67.0 kg
[~2021-12-29 10:03] MED LIST: ALBU17AE26 INH; ASPI81TA53 PO; ATOR20TA66 PO; HYDR-3972 PO; INSU100I31 SQ; LIRA0.6P2 SQ; MELA10CA2 PO; MULT-1085 PO; OMEP40CA21 PO
[2021-12-29 13:23] LABS: WHITE BLOOD COUNT 8.8 X10'3 (4.5-11.0)
[2021-12-29 13:26] LABS: ALANINE AMINOTRANSFERASE 8 U/L (12-78); ALBUMIN 2.7 G/DL (3.4-5.0); ALBUMIN/GLOBULIN RATIO 0.6 (1.1-1.5); ALKALINE PHOSPHATASE 73 IU/L (46-116); ANION GAP 9 (8-16); ASPARTATE AMINO TRANSFERASE 9 U/L (10-37); BILIRUBIN,TOTAL 0.2 MG/DL (0.1-1.0); BLOOD UREA NITROGEN 14 MG/DL (7-18); CALCIUM 8.8 MG/DL (8.5-10.1); CHLORIDE 103 MMOL/L (99-107); CLARITY,URINE CLEAR (Clear); COLOR,URINE YELLOW (Yellow); CREATININE 1.08 MG/DL (0.40-0.90); GLUCOSE 138 MG/DL (70-104); GLUCOSE, URINE NEGATIVE (Neg); KETONES,URINE NEGATIVE (Neg); LEUKOCYTE ESTERASE ,URINE NEGATIVE (Neg); NITRITES, URINE NEGATIVE (Neg); OCCULT BLOOD,URINE NEGATIVE (Neg); POTASSIUM 3.9 MMOL/L (3.5-5.1); PROTEIN,URINE NEGATIVE (Neg); SODIUM 140 MMOL/L (135-145); TOTAL CARBON DIOXIDE 27.7 MMOL/L (24-32); TOTAL PROTEIN 7.1 G/DL (6.4-8.2); UROBILINOGEN,URINE 0.2 E.U/dL (0.2-1.0); eGFR 51 ML/MIN
[2021-12-29 13:38] LABS: UA COLLECTION TYPE CLN CATCH MIDSTREAM
[2021-12-29] MEDS ORDERED: ringers solution, lacted 1,000 ML IV SCH (13:45)
[2021-12-29] MEDS ORDERED: meperidine/PF 25mg/ml syringe IV PRN ×3 (13:45)
[2021-12-29] MEDS ORDERED: proCHLORperazine 10 MG/2 ml inj IV PRN (13:45)
[2021-12-29] MEDS ORDERED: morphine 4 MG/ML inj SYRINge IV PRN (13:45)
[2021-12-29] MEDS ORDERED: morphine 2 MG/ML inj. syringe IV PRN ×2 (13:45→15:35)
[2021-12-29] MEDS ORDERED: ondansetron/PF 4mg/2ml inj IV PRN ×2 (13:45→15:35)
[2021-12-29 13:48] LABS: BASOPHILS # (AUTO) 0.1 X10'3 (0-0.2); BASOPHILS % (AUTO) 0.8 % (0-1); EOSINOPHILS # (AUTO) 0.3 X10'3 (0-0.9); EOSINOPHILS % (AUTO) 3.1 % (0-6); HEMATOCRIT 32.7 % (35.0-45.0); HEMOGLOBIN 10.8 g/dl (12.0-16.0); LYMPHOCYTES # (AUTO) 2.2 X10'3 (1.1-4.8); LYMPHOCYTES % (AUTO) 25.4 % (21-51); MEAN CORPUSCULAR HEMOGLOBIN 30.4 PG (27.0-31.0); MEAN CORPUSCULAR HGB CONC 33.2 g/dL (33.0-36.5); MEAN CORPUSCULAR VOLUME 91.6 FL (78-98); MEAN PLATELET VOLUME 9.9 FL (7.4-10.4); MONOCYTES # (AUTO) 0.9 X10'3 (0-0.9); MONOCYTES % (AUTO) 10.2 % (2-12); NEUTROPHILS # (AUTO) 5.3 X10'3 (1.8-7.7); NEUTROPHILS % (AUTO) 60.5 % (42-75); PLATELET COUNT 355 X10'3 (140-440); RED BLOOD COUNT 3.57 X10'6 (4.20-5.60); RED CELL DISTRIBUTION WIDTH 16.1 % (11.5-14.5)
[2021-12-29] MEDS ORDERED: iohexol 350MG/ML 100ml bottle IV ONE ×2 (14:00)
[2021-12-29] MEDS ORDERED: CefTRIAXone/D5W-Rocephin 1gm 50 ML IV ONE (14:40)
[2021-12-29] MEDS ORDERED: magnesium 2GM in 50ml NS 50 ML IV PRN (15:35)
[2021-12-29] MEDS ORDERED: potassium CL 10mEq/100ml bag 100 ML IV PRN (15:35)
[2021-12-29] MEDS ORDERED: magnesium 4gm in 100ml NS 100 ML IV PRN (15:35)
[2021-12-29] MEDS ORDERED: magnesium Cl slow-release 64mg tablet PO PRN (15:35)
[2021-12-29] MEDS ORDERED: HYDROcodone/acetaminophen 5mg/325mg tablet PO PRN (15:35)
[2021-12-29] MEDS ORDERED: POTASSIUM BICARB 20meq eff tab 20 MEQ TABLET.EFF PO PRN ×2 (15:35)
[2021-12-29] MEDS ORDERED: acetaminophen 325mg tablet PO PRN ×2 (15:35)
[2021-12-29] MEDS ORDERED: glucagon, human recombinant 1mg kit SUBCUT PRN (15:40)
[2021-12-29] MEDS ORDERED: DEXTROSE 15 GM of carb/4 tabs (each vial/BOTTLE has 4 tablets) PO PRN ×2 (15:40)
[2021-12-29] MEDS ORDERED: MESSAGE TO PHARMACY PO ONE (15:40)
[2021-12-29] MEDS ORDERED: dextrose 50%-water 50ml dispensing syringe IV PRN ×2 (15:40)
[2021-12-29 15:48] LABS: APTT 28 SECONDS (22-32)
[2021-12-29 15:50] LABS: C-REACTIVE PROTEIN 5.28 MG/DL (0.0-0.5); MAGNESIUM 1.9 MG/DL (1.5-2.4)
[2021-12-29] MEDS: normal saline 1000ml 1,000 ML IV SCH (16:28)
[2021-12-29] MEDS: piperacillin/tazo 3.375gm/50ml 50 ML IV SCH (17:06)
--- NOTE | 2021-12-29 17:21 | NUR ---
Report given to AMPARO Romano on the Ortho Unit.
[2021-12-29 17:52] VITALS: BP 147/60
[2021-12-29] MEDS ORDERED: ASPI-1265 PO (18:16)
[2021-12-29] MEDS ORDERED: DULO30CA52 PO (18:17)
[2021-12-29] MEDS ORDERED: MELA5TAB12 PO (18:18)
[2021-12-29] MEDS ORDERED: ATOR40TA71 PO (18:19)
[2021-12-29] MEDS: K and/or MAG REPLACEMENT MC SCH (20:00)
[2021-12-29] MEDS: insulin glargine (Lantus) pen - multi-dose SQ SCH (21:00)
[2021-12-29] MEDS: heparin, porcine 5000 units/ml vial SQ SCH (21:12)
[2021-12-30] VITALS (16 sets, daily range): BP systolic 105–190; BP diastolic 33–86
[2021-12-30] MEDS: piperacillin/tazo 3.375gm/50ml 50 ML IV SCH ×3 (01:40→16:00)
[2021-12-30] MEDS: normal saline 1000ml 1,000 ML IV SCH ×2 (04:55→20:47)
--- NOTE | 2021-12-30 05:41 | NUR ---
ENTERED PATIENTS ROOM TO PLACE DNR WRISTBAND. SHE STATED HER WISHES ARE TO BE A FULL CODE AND WHEN SHE CAME TO THE HOSPITAL SHE WAS "CONFUSED". WILL ASK MD TO CHANGE ORDER AND VERBALLY PASS PATIENTS WISHES TO DAY SHIFT RN.
[2021-12-30 06:16] LABS: BASOPHILS # (AUTO) 0.1 X10'3 (0-0.2); EOSINOPHILS # (AUTO) 0.4 X10'3 (0-0.9); EOSINOPHILS % (AUTO) 4.7 % (0-6); HEMATOCRIT 29.4 % (35.0-45.0); HEMOGLOBIN 9.7 g/dl (12.0-16.0); LYMPHOCYTES # (AUTO) 1.7 X10'3 (1.1-4.8); LYMPHOCYTES % (AUTO) 20.8 % (21-51); MEAN CORPUSCULAR HEMOGLOBIN 30.3 PG (27.0-31.0); MEAN CORPUSCULAR HGB CONC 33.1 g/dL (33.0-36.5); MEAN CORPUSCULAR VOLUME 91.6 FL (78-98); MEAN PLATELET VOLUME 9.8 FL (7.4-10.4); MONOCYTES # (AUTO) 0.9 X10'3 (0-0.9); MONOCYTES % (AUTO) 11.4 % (2-12); NEUTROPHILS # (AUTO) 5.1 X10'3 (1.8-7.7); NEUTROPHILS % (AUTO) 62.1 % (42-75); PLATELET COUNT 333 X10'3 (140-440); RED BLOOD COUNT 3.21 X10'6 (4.20-5.60); RED CELL DISTRIBUTION WIDTH 15.9 % (11.5-14.5); WHITE BLOOD COUNT 8.2 X10'3 (4.5-11.0)
[2021-12-30 06:39] LABS: ALANINE AMINOTRANSFERASE 11 U/L (12-78); ALBUMIN 2.4 G/DL (3.4-5.0); ALBUMIN/GLOBULIN RATIO 0.6 (1.1-1.5); ALKALINE PHOSPHATASE 63 IU/L (46-116); ANION GAP 9 (8-16); ASPARTATE AMINO TRANSFERASE 9 U/L (10-37); BILIRUBIN,TOTAL 0.2 MG/DL (0.1-1.0); BLOOD UREA NITROGEN 11 MG/DL (7-18); CALCIUM 8.4 MG/DL (8.5-10.1); CHLORIDE 105 MMOL/L (99-107); GLUCOSE 101 MG/DL (70-104); POTASSIUM 3.8 MMOL/L (3.5-5.1); SODIUM 142 MMOL/L (135-145); TOTAL CARBON DIOXIDE 28.1 MMOL/L (24-32); TOTAL PROTEIN 6.3 G/DL (6.4-8.2); eGFR 50 ML/MIN
--- NOTE | 2021-12-30 06:48 | NUR ---
Patient in room ORTHO 4023. I have received report from MARTY/CHANTELLE CHRISTENSEN and had the opportunity to ask questions and assume patient care.
[2021-12-30] MEDS: HYDROcodone/acetaminophen 10/325mg tab PO PRN (07:45)
--- NOTE | 2021-12-30 07:45 | NUR ---
patient allowed to have breakfast yhis am per Dr burns. Is for explorative surg of groin,late pm. Minto given for pain
[2021-12-30] MEDS: K and/or MAG REPLACEMENT MC SCH ×2 (08:00→20:43)
[2021-12-30] MEDS: heparin, porcine 5000 units/ml vial SQ SCH ×2 (08:00→20:38)
--- NOTE | 2021-12-30 08:19 | NUR ---
Patient in room ORTHO 4023. I have received report from Kandis/ Lorie CHRISTENSEN and had the opportunity to ask questions and assume patient care.
--- NOTE | 2021-12-30 08:42 | NUR ---
DM consult: Per EMR pt with T2DM, well controlled with A1c 6.1%. DM education not warranted at this time. Will continue to follow. Addendum: 12/30/21 at [address] Amended: Links added.
[2021-12-30] MEDS ORDERED: pneumococcal 23-VAL P-sac vacc 25 mcg/0.5ml vial IMVAC ONE (12:00)
--- NOTE | 2021-12-30 16:39 | NUR ---
patient appears stable. prepped for surgery with DR Coello. Picked up 1615hrs.
[2021-12-30] MEDS ORDERED: proCHLORperazine 10 MG/2 ml inj IV PRN (17:00)
[2021-12-30] MEDS ORDERED: ringers solution, lacted 1,000 ML IV SCH (17:00)
[2021-12-30] MEDS ORDERED: meperidine/PF 25mg/ml syringe IV PRN ×3 (17:00)
[2021-12-30] MEDS ORDERED: morphine 4 MG/ML inj SYRINge IV PRN (17:00)
[2021-12-30] MEDS ORDERED: morphine 2 MG/ML inj. syringe IV PRN (17:00)
[2021-12-30] MEDS ORDERED: ondansetron/PF 4mg/2ml inj IV PRN (17:00)
[2021-12-30] MEDS ORDERED: iohexol 350MG/ML 100ml bottle IV ONE (17:10)
[2021-12-30] MEDS ORDERED: heparin 10,000 units/1 ML INJ ONE (17:10)
[2021-12-30] MEDS ORDERED: sevoflurane 250ml liquid IH ONE (17:43)
[2021-12-30] MEDS ORDERED: fentaNYL/PF 50MCG/1 ML 2ML syringe ONE (17:48)
[2021-12-30] MEDS ORDERED: midazolam 1 mg/ML 2ml injection ONE (17:49)
[2021-12-30] MEDS ORDERED: propofol inj 20 ML IV ONE (17:53)
[2021-12-30] MEDS ORDERED: albumin (Human) 5% 250ml 250 ML IV ONE (18:03)
[2021-12-30] MEDS ORDERED: ceFAZolin 1000mg inj ONE ×2 (18:10)
[2021-12-30] MEDS ORDERED: ePHEDrine 50MG/ML INJ. ONE (18:13)
--- NOTE | 2021-12-30 19:36 | NUR ---
Patient in room ORTHO 4023. I have received report from Annelise CHRISTENSEN and had the opportunity to ask questions and awaiting patients arrival
--- NOTE | 2021-12-30 19:40 | NUR ---
RECEIVED REPORT FROM DR SMITH, PT RECEIVED IN STABLE CONDITION, WOUND VAC IN PLACE, PULSESX ARE PALPABLE, ORDERS TO NOT PLACE SCDS ON PT FROM DR PELAEZ. LEFT TOE/FOOT WOUND COVERED WITH DRESSING, MIDLINE ABD AND GROIN WOUNDS WITH STERISTRIPS, APPEARS TO BE HEALING WELL. SMALL OPEN AREA ON UPPER END OF EXCISION Addendum: 12/30/21 at 7 by Mona Mahajan RN Amended: Links added.
--- NOTE | 2021-12-30 19:55 | NUR ---
REPORT CALLED TO MARCY alcazar, PT TRANSPORTED BY TRANSPORT [employer] TO HER ROOM, REATTACHED TO PORTABLE TELI MONITOR PRIOR TO TRANSPORT, MARCY CALLED AND MADE AWARE THAT PATIENT WAS ON HER WAY WITH TRANSPORT. Addendum: 12/30/21 at 1958 by Mona Mahajan RN Amended: Links added.
[2021-12-30] MEDS: morphine 2 MG/ML inj. syringe IV PRN (20:38)
[2021-12-30] MEDS: atorvastatin 20mg tablet PO SCH (20:39)
[2021-12-30] MEDS: aspirin 81mg tab.chew PO SCH (20:39)
[2021-12-30] MEDS: insulin glargine (Lantus) pen - multi-dose SQ SCH (21:00)
[2021-12-31] VITALS: BP 161/47
[2021-12-31] MEDS: piperacillin/tazo 3.375gm/50ml 50 ML IV SCH ×3 (00:52→16:11)
[2021-12-31] MEDS: morphine 2 MG/ML inj. syringe IV PRN (00:54)
[2021-12-31 05:00] VITALS: BP 151/44
[2021-12-31] MEDS: HYDROcodone/acetaminophen 10/325mg tab PO PRN ×3 (05:32→17:51)
--- NOTE | 2021-12-31 06:27 | NUR ---
patient was orientated back to room . Wound vac in place to right groin, no hematoma observed. sero baeza drainage small amount in chamber. Medicated for pain x3 see EMAR. with good result. Patient slept on and off during shift. Report given to Adrienne CHRISTENSEN
--- NOTE | 2021-12-31 06:32 | NUR ---
Patient in room ORTHO 4023. I have received report from Ingris CHRISTENSEN and had the opportunity to ask questions and assume patient care.
[2021-12-31] MEDS: aspirin 81mg tab.chew PO SCH ×2 (07:27→20:08)
[2021-12-31] MEDS: normal saline 1000ml 1,000 ML IV SCH ×2 (07:29→20:13)
[2021-12-31] MEDS: heparin, porcine 5000 units/ml vial SQ SCH ×2 (07:29→20:09)
[2021-12-31] MEDS: K and/or MAG REPLACEMENT MC SCH ×2 (08:00→19:27)
[2021-12-31 08:36] LABS: BASOPHILS # (AUTO) 0.1 X10'3 (0-0.2); BASOPHILS % (AUTO) 0.8 % (0-1); EOSINOPHILS # (AUTO) 0.2 X10'3 (0-0.9); EOSINOPHILS % (AUTO) 1.8 % (0-6); HEMATOCRIT 29.7 % (35.0-45.0); HEMOGLOBIN 9.8 g/dl (12.0-16.0); LYMPHOCYTES # (AUTO) 1.3 X10'3 (1.1-4.8); MEAN CORPUSCULAR HEMOGLOBIN 30.4 PG (27.0-31.0); MEAN CORPUSCULAR HGB CONC 32.8 g/dL (33.0-36.5); MEAN CORPUSCULAR VOLUME 92.7 FL (78-98); MEAN PLATELET VOLUME 9.7 FL (7.4-10.4); MONOCYTES # (AUTO) 0.8 X10'3 (0-0.9); MONOCYTES % (AUTO) 8.6 % (2-12); NEUTROPHILS # (AUTO) 6.6 X10'3 (1.8-7.7); NEUTROPHILS % (AUTO) 73.8 % (42-75); PLATELET COUNT 291 X10'3 (140-440); RED BLOOD COUNT 3.21 X10'6 (4.20-5.60); RED CELL DISTRIBUTION WIDTH 16.1 % (11.5-14.5)
[2021-12-31] MEDS: duloxetine 30mg CAPSULE.DR PO SCH (08:43)
[2021-12-31 08:57] LABS: ALANINE AMINOTRANSFERASE 9 U/L (12-78); ALBUMIN 2.6 G/DL (3.4-5.0); ALBUMIN/GLOBULIN RATIO 0.7 (1.1-1.5); ALKALINE PHOSPHATASE 60 IU/L (46-116); ANION GAP 10 (8-16); ASPARTATE AMINO TRANSFERASE 11 U/L (10-37); BILIRUBIN,TOTAL 0.3 MG/DL (0.1-1.0); BLOOD UREA NITROGEN 9 MG/DL (7-18); CALCIUM 8.3 MG/DL (8.5-10.1); CHLORIDE 105 MMOL/L (99-107); GLUCOSE 105 MG/DL (70-104); POTASSIUM 3.6 MMOL/L (3.5-5.1); SODIUM 142 MMOL/L (135-145); TOTAL CARBON DIOXIDE 27.4 MMOL/L (24-32); TOTAL PROTEIN 6.3 G/DL (6.4-8.2); eGFR 56 ML/MIN
[2021-12-31 10:00] VITALS: BP 125/48
--- NOTE | 2021-12-31 15:10 | NUR ---
WOUND VAC EDUCATION PROVIDED BY WOUND CARE 1. Patient instructed to call the Wound Center or their Home Health Agency immediately if: * They notice a change in the color or amount of the fluid in the canister. * Their wound looks more red than usual or has a foul smell. * The skin around their wound looks reddened or irritated. * The dressing feels loose or appears to be loose. * They experience any increase or changes in their pain. * The alarm will not turn off. 2. Patient instructed that they should not be disconnected from suction for more than 2 hours at a time. * If they are not able to get the suction back on, they need to remove the dressing and take all of the foam out of the wound. * Then moisten sterile gauze with normal saline and place on/in the wound. * Change the dressing once a day until arrangements have been made to replace the wound vac dressing. 3. Patient instructed to turn the wound vac machine OFF and call 911 or go to the ED immediately if their canister fills rapidly with blood. 4. If any of these occur while in the hospital tell a nurse immediately. Addendum: 12/31/21 at 1510 by Anisa Olvera RN Amended: Links added.
--- NOTE | 2021-12-31 17:52 | NUR ---
I have reviewed and agree with and/or made changes to all interventions, assessments performed and documented by AMPARO Galaviz.
[2021-12-31 18:00] VITALS: BP 130/45
--- NOTE | 2021-12-31 18:43 | NUR ---
Problems reprioritized. Patient report given, questions answered & plan of care reviewed with Nahomi CHRISTENSEN.
[2021-12-31] MEDS: atorvastatin 20mg tablet PO SCH (20:08)
[2021-12-31] MEDS: insulin glargine (Lantus) pen - multi-dose SQ SCH (21:00)
[2021-12-31 22:00] VITALS: BP 156/48
[2022-01-01] MEDS: piperacillin/tazo 3.375gm/50ml 50 ML IV SCH ×3 (00:10→16:10)
[2022-01-01] MEDS: HYDROcodone/acetaminophen 10/325mg tab PO PRN ×4 (00:16→20:47)
[2022-01-01 06:00] VITALS: BP 141/44
[2022-01-01 06:33] LABS: BASOPHILS # (AUTO) 0.1 X10'3 (0-0.2); BASOPHILS % (AUTO) 0.9 % (0-1); EOSINOPHILS # (AUTO) 0.2 X10'3 (0-0.9); EOSINOPHILS % (AUTO) 3.1 % (0-6); HEMATOCRIT 29.1 % (35.0-45.0); HEMOGLOBIN 9.5 g/dl (12.0-16.0); LYMPHOCYTES # (AUTO) 1.6 X10'3 (1.1-4.8); MEAN CORPUSCULAR HGB CONC 32.8 g/dL (33.0-36.5); MEAN CORPUSCULAR VOLUME 91.6 FL (78-98); MONOCYTES # (AUTO) 0.9 X10'3 (0-0.9); MONOCYTES % (AUTO) 11.4 % (2-12); NEUTROPHILS # (AUTO) 4.9 X10'3 (1.8-7.7); NEUTROPHILS % (AUTO) 63.6 % (42-75); PLATELET COUNT 272 X10'3 (140-440); RED BLOOD COUNT 3.18 X10'6 (4.20-5.60); RED CELL DISTRIBUTION WIDTH 15.6 % (11.5-14.5); WHITE BLOOD COUNT 7.7 X10'3 (4.5-11.0)
[2022-01-01 06:37] LABS: ANION GAP 10 (8-16); BLOOD UREA NITROGEN 7 MG/DL (7-18); CHLORIDE 103 MMOL/L (99-107); CREATININE 0.92 MG/DL (0.40-0.90); GLUCOSE 130 MG/DL (70-104); POTASSIUM 3.6 MMOL/L (3.5-5.1); SODIUM 139 MMOL/L (135-145)
[2022-01-01 06:38] LABS: ALANINE AMINOTRANSFERASE 8 U/L (12-78); ALBUMIN 2.4 G/DL (3.4-5.0); ALBUMIN/GLOBULIN RATIO 0.6 (1.1-1.5); ALKALINE PHOSPHATASE 61 IU/L (46-116); ASPARTATE AMINO TRANSFERASE 11 U/L (10-37); BILIRUBIN,TOTAL 0.3 MG/DL (0.1-1.0); BUN/CREATININE RATIO 7.6 (6.6-38.0); CALCIUM 8.6 MG/DL (8.5-10.1); TOTAL PROTEIN 6.3 G/DL (6.4-8.2); eGFR 61 ML/MIN
--- NOTE | 2022-01-01 06:38 | NUR ---
Problems reprioritized. Patient report given, questions answered & plan of care reviewed with AMPARO Lopes and AMPARO Galaviz.
--- NOTE | 2022-01-01 07:06 | NUR ---
Patient in room ORTHO 4023. I have received report from Nahomi CHRISTENSEN and had the opportunity to ask questions and assume patient care.
[2022-01-01] MEDS: K and/or MAG REPLACEMENT MC SCH ×2 (08:00→19:32)
[2022-01-01] MEDS: heparin, porcine 5000 units/ml vial SQ SCH ×2 (08:10→20:13)
[2022-01-01] MEDS: duloxetine 30mg CAPSULE.DR PO SCH (08:10)
[2022-01-01] MEDS: aspirin 81mg tab.chew PO SCH ×2 (08:10→20:13)
[2022-01-01] MEDS: normal saline 1000ml 1,000 ML IV SCH (09:04)
[2022-01-01 10:00] VITALS: BP 138/62
--- NOTE | 2022-01-01 17:00 | NUR ---
Problems reprioritized. Patient report given, questions answered & plan of care reviewed with Nahomi CHRISTENSEN.
[2022-01-01] MEDS ORDERED: pneumococcal 23-VAL P-sac vacc 25 mcg/0.5ml vial IMVAC ONE (17:30)
[2022-01-01 18:00] VITALS: BP 137/51
--- NOTE | 2022-01-01 18:39 | NUR ---
I have reviewed Ranjana Ricks's charting and made changes where needed. Report given to Nahomi RICKS
[2022-01-01] MEDS: insulin Lispro (HumaLOG) vial - multi-dose SQ SCH (19:14)
[2022-01-01] MEDS: atorvastatin 20mg tablet PO SCH (20:13)
[2022-01-01] MEDS: insulin glargine (Lantus) pen - multi-dose SQ SCH (20:52)
[2022-01-01 22:00] VITALS: BP 141/48
[2022-01-02] MEDS: piperacillin/tazo 3.375gm/50ml 50 ML IV SCH ×3 (00:03→17:21)
[2022-01-02] MEDS: normal saline 1000ml 1,000 ML IV SCH ×2 (00:07→13:13)
[2022-01-02] MEDS: HYDROcodone/acetaminophen 10/325mg tab PO PRN ×3 (04:10→16:48)
[2022-01-02 05:00] VITALS: BP 134/50
[2022-01-02 06:00] VITALS: BP 134/50
[2022-01-02 06:04] LABS: ALANINE AMINOTRANSFERASE 8 U/L (12-78); ALBUMIN 2.4 G/DL (3.4-5.0); ALBUMIN/GLOBULIN RATIO 0.6 (1.1-1.5); ALKALINE PHOSPHATASE 57 IU/L (46-116); ANION GAP 7 (8-16); ASPARTATE AMINO TRANSFERASE 9 U/L (10-37); BILIRUBIN,TOTAL 0.3 MG/DL (0.1-1.0); BLOOD UREA NITROGEN 11 MG/DL (7-18); BUN/CREATININE RATIO 10.1 (6.6-38.0); CALCIUM 8.6 MG/DL (8.5-10.1); CHLORIDE 105 MMOL/L (99-107); CREATININE 1.09 MG/DL (0.40-0.90); GLUCOSE 131 MG/DL (70-104); POTASSIUM 3.8 MMOL/L (3.5-5.1); SODIUM 141 MMOL/L (135-145); TOTAL CARBON DIOXIDE 29.1 MMOL/L (24-32); TOTAL PROTEIN 6.3 G/DL (6.4-8.2); eGFR 51 ML/MIN
[2022-01-02 06:17] LABS: BASOPHILS # (AUTO) 0.1 X10'3 (0-0.2); BASOPHILS % (AUTO) 0.7 % (0-1); EOSINOPHILS # (AUTO) 0.3 X10'3 (0-0.9); EOSINOPHILS % (AUTO) 4.6 % (0-6); HEMATOCRIT 27.7 % (35.0-45.0); HEMOGLOBIN 9.1 g/dl (12.0-16.0); LYMPHOCYTES # (AUTO) 1.6 X10'3 (1.1-4.8); LYMPHOCYTES % (AUTO) 20.8 % (21-51); MEAN CORPUSCULAR HEMOGLOBIN 30.6 PG (27.0-31.0); MEAN CORPUSCULAR HGB CONC 32.8 g/dL (33.0-36.5); MEAN CORPUSCULAR VOLUME 93.3 FL (78-98); MEAN PLATELET VOLUME 9.9 FL (7.4-10.4); MONOCYTES # (AUTO) 0.8 X10'3 (0-0.9); MONOCYTES % (AUTO) 10.9 % (2-12); NEUTROPHILS # (AUTO) 4.7 X10'3 (1.8-7.7); PLATELET COUNT 255 X10'3 (140-440); RED BLOOD COUNT 2.97 X10'6 (4.20-5.60); RED CELL DISTRIBUTION WIDTH 15.6 % (11.5-14.5); WHITE BLOOD COUNT 7.5 X10'3 (4.5-11.0)
--- NOTE | 2022-01-02 06:19 | NUR ---
Problems reprioritized. Patient report given, questions answered & plan of care reviewed with AMPARO Davis.
--- NOTE | 2022-01-02 06:38 | NUR ---
Patient in room ORTHO 4023. I have received report from gallo alcazar and had the opportunity to ask questions and assume patient care.
[2022-01-02] MEDS: duloxetine 30mg CAPSULE.DR PO SCH (07:49)
[2022-01-02] MEDS: aspirin 81mg tab.chew PO SCH ×2 (07:49→20:23)
[2022-01-02] MEDS: heparin, porcine 5000 units/ml vial SQ SCH ×2 (07:51→20:23)
[2022-01-02] MEDS: K and/or MAG REPLACEMENT MC SCH ×2 (08:00→20:00)
[2022-01-02] MEDS: insulin Lispro (HumaLOG) vial - multi-dose SQ SCH ×3 (08:29→18:55)
[2022-01-02 10:00] VITALS: BP 119/44
--- NOTE | 2022-01-02 15:33 | NUR ---
Pt was very compliant today and minimal pain. Pt slept throughout the day. Independent transfer and ambulated to the restroom. BM this morning x3, soft and formed. Wound care provide per MD orders.
[2022-01-02 18:00] VITALS: BP 148/46
--- NOTE | 2022-01-02 20:00 | NUR ---
patient refused cream to skin - "makes her cold"
[2022-01-02] MEDS: atorvastatin 20mg tablet PO SCH (20:23)
[2022-01-02] MEDS: insulin glargine (Lantus) pen - multi-dose SQ SCH (20:55)
[2022-01-02 22:00] VITALS: BP 128/36
[2022-01-03] MEDS: normal saline 1000ml 1,000 ML IV SCH ×2 (00:28→12:24)
[2022-01-03] MEDS: piperacillin/tazo 3.375gm/50ml 50 ML IV SCH ×3 (00:28→16:55)
[2022-01-03] MEDS: HYDROcodone/acetaminophen 10/325mg tab PO PRN ×4 (00:35→16:56)
[2022-01-03 05:47] LABS: BASOPHILS # (AUTO) 0.1 X10'3 (0-0.2); BASOPHILS % (AUTO) 0.8 % (0-1); EOSINOPHILS # (AUTO) 0.3 X10'3 (0-0.9); EOSINOPHILS % (AUTO) 4.7 % (0-6); HEMATOCRIT 27.6 % (35.0-45.0); HEMOGLOBIN 9.2 g/dl (12.0-16.0); LYMPHOCYTES # (AUTO) 1.5 X10'3 (1.1-4.8); LYMPHOCYTES % (AUTO) 22.4 % (21-51); MEAN CORPUSCULAR HEMOGLOBIN 30.5 PG (27.0-31.0); MEAN CORPUSCULAR HGB CONC 33.4 g/dL (33.0-36.5); MEAN CORPUSCULAR VOLUME 91.4 FL (78-98); MEAN PLATELET VOLUME 10.1 FL (7.4-10.4); MONOCYTES # (AUTO) 0.6 X10'3 (0-0.9); MONOCYTES % (AUTO) 9.5 % (2-12); NEUTROPHILS # (AUTO) 4.1 X10'3 (1.8-7.7); NEUTROPHILS % (AUTO) 62.6 % (42-75); PLATELET COUNT 251 X10'3 (140-440); RED BLOOD COUNT 3.03 X10'6 (4.20-5.60); RED CELL DISTRIBUTION WIDTH 15.6 % (11.5-14.5); WHITE BLOOD COUNT 6.5 X10'3 (4.5-11.0)
[2022-01-03 06:00] VITALS: BP 126/38
[2022-01-03 06:03] LABS: ALANINE AMINOTRANSFERASE 8 U/L (12-78); ALBUMIN 2.3 G/DL (3.4-5.0); ALBUMIN/GLOBULIN RATIO 0.6 (1.1-1.5); ALKALINE PHOSPHATASE 61 IU/L (46-116); ANION GAP 5 (8-16); ASPARTATE AMINO TRANSFERASE 10 U/L (10-37); BILIRUBIN,TOTAL 0.2 MG/DL (0.1-1.0); BLOOD UREA NITROGEN 10 MG/DL (7-18); BUN/CREATININE RATIO 10.3 (6.6-38.0); CALCIUM 8.6 MG/DL (8.5-10.1); CHLORIDE 106 MMOL/L (99-107); CREATININE 0.97 MG/DL (0.40-0.90); GLUCOSE 127 MG/DL (70-104); POTASSIUM 3.6 MMOL/L (3.5-5.1); SODIUM 140 MMOL/L (135-145); TOTAL PROTEIN 6.1 G/DL (6.4-8.2); eGFR 58 ML/MIN
--- NOTE | 2022-01-03 06:36 | NUR ---
Problems reprioritized. Patient report given, questions answered & plan of care reviewed with AMPARO Holland.
--- NOTE | 2022-01-03 07:42 | NUR ---
Notified wound care that patients wound vac has been off since monday and nursing has been doing wet to dry.
[2022-01-03] MEDS: duloxetine 30mg CAPSULE.DR PO SCH (07:56)
[2022-01-03] MEDS: aspirin 81mg tab.chew PO SCH ×2 (07:57→20:34)
[2022-01-03] MEDS: heparin, porcine 5000 units/ml vial SQ SCH ×2 (07:58→20:35)
[2022-01-03] MEDS: K and/or MAG REPLACEMENT MC SCH ×2 (08:00→20:00)
[2022-01-03] MEDS: insulin Lispro (HumaLOG) vial - multi-dose SQ SCH ×2 (08:11→18:54)
[2022-01-03 10:00] VITALS: BP 128/41
[2022-01-03] MEDS: vancomycin/NS 1 GM ADD-VANTAGE 250 ML IV SCH (12:18)
--- NOTE | 2022-01-03 13:02 | NUR ---
PRESSURE ULCER EDUCATION: DEFINITION: A pressure ulcer is an area of skin that breaks down when you stay in one position too long. The constant pressure against the skin reduces the blood flow to that area and the affected tissue dies. CAUSES: "Being bedridden or in a wheelchair "Fragile skin "Having a chronic condition, such as diabetes or vascular disease "Inability to move certain parts of your body without assistance "Older age "Incontinence of urine or stool SYMPTOMS: "A reddened area that DOES NOT turn white when pressed on - this can be the beginning of a pressure ulcer "A blister, deep sore or a crater - these can be advanced pressure ulcers FIRST AID: "Relieve the pressure on this area "Keep the area clean and dry "Call your primary doctor if you see any of the above symptoms "DO NOT massage the area "DO NOT use a donut shaped or ring shaped pillow- these actually interfere with the blood flow and cause complications PREVENTION: "Check for pressure ulcers everyday "Change position at least every two hours to relieve pressure "Use items that help relieve pressure- pillows, sheepskin, foam padding, and powders. "Keep skin clean and dry "Eat healthy well balanced meals "Exercise daily IF YOU SEE ANY OF THESE SYMPTOMS WHILE IN THE HOSPITAL - TELL YOUR NURSE IMMEDIATELY. IF YOU SEE ANY OF THESE SYMPTOMS WHILE AT HOME OR HAVE ANY QUESTIONS OR CONCERNS ABOUT PRESSURE ULCERS - CALL YOUR PRIMARY DOCTOR IMMEDIATELY. Addendum: 01/03/22 at 1302 by Zahra Abreu LVN Amended: Links added.
--- NOTE | 2022-01-03 13:27 | NUR ---
Initial: Pt admit DX R groin abscess, T2DM, PVD, and anemia s/p R groin exploration, sartorius muscle flap, and wound vac per EMR. Pt initial PO poor on carb controlled diet 0-25% now improving to ~88% avg meals since yesterday overall partially meeting needs; will meet estimated needs if current PO trends persist. Given hx recent first toe amputation now w/ surgical wound and vac would benefit from Nish smoothie BIDBD; MD notfified. Current national shortage for Nish so normal smoothies sent in meantime until restocked. RD d/w RN regarding MVI supplementation for wound healing if MD agreeable. LBM 01/02. Will continue to monitor. Rec: 1. continue carb controlled diet; consider regular diet if PO regresses given A1C 6.1% 2. Nish smoothie BIDBD for wound healing pending MD verification in EMR; national Nish shortage normal smoothies sent until restocked 3. routine bowel care 4. MVI for wound healing 5. scaled wt this admit; subsequent weekly wts Addendum: 01/03/22 at [address] Amended: Links added.
[2022-01-03] MEDS: JUVEN Smoothie Arginine/Glut./Ca2+Bmb (Juven 19.3pkt) 240ml cup PO SCH (17:30)
[2022-01-03 18:00] VITALS: BP 140/35
--- NOTE | 2022-01-03 18:44 | NUR ---
Problems reprioritized. Patient report given, questions answered & plan of care reviewed with Cora CHRISTENSEN.
[2022-01-03] MEDS: atorvastatin 20mg tablet PO SCH (20:34)
[2022-01-03] MEDS: insulin glargine (Lantus) pen - multi-dose SQ SCH (20:39)
[2022-01-03 22:00] VITALS: BP 173/47
[2022-01-04] MEDS: HYDROcodone/acetaminophen 10/325mg tab PO PRN ×5 (00:35→21:52)
[2022-01-04] MEDS: piperacillin/tazo 3.375gm/50ml 50 ML IV SCH ×3 (00:36→16:46)
[2022-01-04] MEDS: normal saline 1000ml 1,000 ML IV SCH ×2 (05:35→20:11)
[2022-01-04 06:00] VITALS: BP 168/55
--- NOTE | 2022-01-04 06:33 | NUR ---
Patient in room ORTHO 4023. I have received report from Cora RN and had the opportunity to ask questions and assume patient care.
[2022-01-04] MEDS: JUVEN Smoothie Arginine/Glut./Ca2+Bmb (Juven 19.3pkt) 240ml cup PO SCH ×2 (07:30→18:30)
[2022-01-04] MEDS: duloxetine 30mg CAPSULE.DR PO SCH (08:00)
[2022-01-04] MEDS: aspirin 81mg tab.chew PO SCH ×2 (08:00→20:11)
[2022-01-04] MEDS: K and/or MAG REPLACEMENT MC SCH ×2 (08:00→20:00)
[2022-01-04] MEDS: heparin, porcine 5000 units/ml vial SQ SCH ×2 (08:00→20:12)
[2022-01-04 10:00] VITALS: BP 187/56
--- NOTE | 2022-01-04 10:34 | NUR ---
PAGER ID: [phone] MESSAGE: Amalia Lawson [phone] Re: Cesar [phone] Please call re: + wound cultures
--- NOTE | 2022-01-04 11:25 | NUR ---
No labs ordered on patient today
--- NOTE | 2022-01-04 11:41 | NUR ---
Dr Adrian aware of patient positive wound culture showing Pseudomonas Aeruginosa. Patient on Vancomycin and Zosyn. Dr Arroyo ordered Vancomycin but no notes. Dr Adrian will contact him.
[2022-01-04] MEDS: vancomycin/NS 1 GM ADD-VANTAGE 250 ML IV SCH (12:13)
--- NOTE | 2022-01-04 18:11 | NUR ---
Problems reprioritized. Patient report given, questions answered & plan of care reviewed with Cora CHRISTENSEN.
[2022-01-04 18:30] VITALS: BP 145/41
[2022-01-04] MEDS: insulin Lispro (HumaLOG) vial - multi-dose SQ SCH (18:59)
[2022-01-04] MEDS: atorvastatin 20mg tablet PO SCH (20:11)
[2022-01-04] MEDS: insulin glargine (Lantus) pen - multi-dose SQ SCH (21:56)
[2022-01-04 22:00] VITALS: BP 152/53
[2022-01-05] MEDS: piperacillin/tazo 3.375gm/50ml 50 ML IV SCH ×2 (00:38→08:59)
[2022-01-05 06:00] VITALS: BP 154/87
[2022-01-05] MEDS: JUVEN Smoothie Arginine/Glut./Ca2+Bmb (Juven 19.3pkt) 240ml cup PO SCH ×2 (07:30→17:30)
[2022-01-05] MEDS: normal saline 1000ml 1,000 ML IV SCH (07:35)
[2022-01-05] MEDS: K and/or MAG REPLACEMENT MC SCH ×2 (08:00→20:00)
[2022-01-05] MEDS: aspirin 81mg tab.chew PO SCH ×2 (09:00→19:52)
[2022-01-05] MEDS: duloxetine 30mg CAPSULE.DR PO SCH (09:00)
[2022-01-05] MEDS: heparin, porcine 5000 units/ml vial SQ SCH ×2 (09:02→19:52)
[2022-01-05] MEDS: HYDROcodone/acetaminophen 10/325mg tab PO PRN ×3 (09:15→17:53)
[2022-01-05 11:25] VITALS: BP 140/50
[2022-01-05] MEDS: insulin Lispro (HumaLOG) vial - multi-dose SQ SCH ×2 (13:49→19:49)
[2022-01-05] MEDS: vancomycin/NS 1 GM ADD-VANTAGE 250 ML IV SCH (13:57)
--- NOTE | 2022-01-05 16:44 | NUR ---
Charting by Bella ESPINOZA reviewed by Brittany Pickard RN
--- NOTE | 2022-01-05 16:49 | NUR ---
Unable to check urine for clarity or odor due to patient voiding in bedside commode with diarrhea. Unable to check left pedal pulse due to thick dressings. Patient denies any pain with urinating. She stated that she has diarrhea and has used commode several times.
[2022-01-05] MEDS: ceftolozone/tazobactam inj. 1.5 GM in normal saline 100ml IV soln 100 ML IV SCH (17:12)
--- NOTE | 2022-01-05 18:17 | NUR ---
patient medicated x3 for pain with good effect ambulating in room. BM today. Seen by wound team wound vac changed . patient told genie music rehabilitation therapist THAT SHE IS ALLERGIC TO METAL PHARNACYmade aware of allergy Report given to Cora CHRISTENSEN
[2022-01-05 18:30] VITALS: BP 181/52
[2022-01-05] MEDS: atorvastatin 20mg tablet PO SCH (19:52)
[2022-01-05] MEDS: insulin glargine (Lantus) pen - multi-dose SQ SCH (21:20)
[2022-01-05 22:00] VITALS: BP 158/41
[2022-01-06] MEDS: ceftolozone/tazobactam inj. 1.5 GM in normal saline 100ml IV soln 100 ML IV SCH ×3 (00:30→16:08)
[2022-01-06] MEDS: HYDROcodone/acetaminophen 10/325mg tab PO PRN ×5 (00:31→21:11)
[2022-01-06] MEDS: normal saline 1000ml 1,000 ML IV SCH ×3 (00:41→22:21)
[2022-01-06 06:00] VITALS: BP 153/76
--- NOTE | 2022-01-06 06:30 | NUR ---
received report from dylan, rn
[2022-01-06 07:20] LABS: ALBUMIN 2.6 G/DL (3.4-5.0); ANION GAP 7 (8-16); BLOOD UREA NITROGEN 10 MG/DL (7-18); CALCIUM 8.6 MG/DL (8.5-10.1); CHLORIDE 106 MMOL/L (99-107); CREATININE 0.83 MG/DL (0.40-0.90); GLUCOSE 136 MG/DL (70-104); SODIUM 144 MMOL/L (135-145); TOTAL CARBON DIOXIDE 31.4 MMOL/L (24-32); eGFR 69 ML/MIN
[2022-01-06] MEDS: JUVEN Smoothie Arginine/Glut./Ca2+Bmb (Juven 19.3pkt) 240ml cup PO SCH (07:30)
[2022-01-06] MEDS: aspirin 81mg tab.chew PO SCH ×2 (07:33→20:14)
[2022-01-06] MEDS: duloxetine 30mg CAPSULE.DR PO SCH (07:33)
[2022-01-06] MEDS: heparin, porcine 5000 units/ml vial SQ SCH ×2 (07:36→20:15)
[2022-01-06] MEDS: K and/or MAG REPLACEMENT MC SCH ×3 (07:45→20:00)
[2022-01-06] MEDS ORDERED: potassium Cl 20 mEq SR tablet PO PRN ×2 (07:45)
[2022-01-06] MEDS ORDERED: potassium CL 10mEq/100ml bag 100 ML IV PRN (08:05)
[2022-01-06] MEDS ORDERED: magnesium 4gm in 100ml NS 100 ML IV PRN (08:05)
[2022-01-06] MEDS ORDERED: magnesium 2GM in 50ml NS 50 ML IV PRN (08:05)
[2022-01-06] MEDS ORDERED: POTASSIUM BICARB 20meq eff tab 20 MEQ TABLET.EFF PO PRN (08:05)
--- NOTE | 2022-01-06 08:21 | NUR ---
Reassessment: Pt continues on Carb control diet w/ variable intake, avg 37% of meals not meeting est needs. Pt also consumed 100% of first Nish smoothie. Recommend liberalizing to Regular diet given poor PO intake. LB 01/05. Will monitor need for additional ONS pending further trends. Rec: 1. Liberalize to Regular diet given poor PO, A1C 6.1% 2. Nish smoothie BIDBD for wound healing pending MD verification in EMR; national Nish shortage normal smoothies sent until restocked 3. routine bowel care 4. MVI for wound healing 5. scaled wt this admit; subsequent weekly wts Addendum: 01/06/22 at [address] Amended: Links added.
[2022-01-06] MEDS: insulin Lispro (HumaLOG) vial - multi-dose SQ SCH ×2 (08:58→13:46)
[2022-01-06] MEDS: POTASSIUM BICARB 20meq eff tab 20 MEQ TABLET.EFF PO PRN ×2 (08:59→17:06)
[2022-01-06 09:39] LABS: MAGNESIUM 1.4 MG/DL (1.5-2.4)
[2022-01-06 10:00] VITALS: BP 183/60
[2022-01-06] MEDS ORDERED: VANCOMYCIN LEVEL IV ONE (11:30)
[2022-01-06] MEDS: vancomycin/NS 1 GM ADD-VANTAGE 250 ML IV SCH (13:27)
[2022-01-06 17:00] VITALS: BP 172/62
--- NOTE | 2022-01-06 18:30 | NUR ---
Patient in room ORTHO 4018. I have received report from phylicia and had the opportunity to ask questions and assume patient care.
--- NOTE | 2022-01-06 18:32 | NUR ---
gave report to ottoniel adamson
[2022-01-06] MEDS: atorvastatin 20mg tablet PO SCH (20:15)
[2022-01-06] MEDS: insulin glargine (Lantus) pen - multi-dose SQ SCH (21:19)
[2022-01-06 22:00] VITALS: BP 154/49
[2022-01-07] MEDS: ceftolozone/tazobactam inj. 1.5 GM in normal saline 100ml IV soln 100 ML IV SCH ×4 (00:22→22:50)
[2022-01-07] MEDS: HYDROcodone/acetaminophen 10/325mg tab PO PRN ×4 (01:17→19:16)
[2022-01-07 06:00] VITALS: BP 170/56
--- NOTE | 2022-01-07 06:10 | NUR ---
Problems reprioritized. Patient report given, questions answered & plan of care reviewed with niurka.
[2022-01-07] MEDS: JUVEN Smoothie Arginine/Glut./Ca2+Bmb (Juven 19.3pkt) 240ml cup PO SCH ×3 (07:30→18:49)
[2022-01-07] MEDS: K and/or MAG REPLACEMENT MC SCH ×4 (08:00→19:48)
[2022-01-07] MEDS: duloxetine 30mg CAPSULE.DR PO SCH (08:01)
[2022-01-07] MEDS: aspirin 81mg tab.chew PO SCH ×2 (08:01→20:20)
[2022-01-07] MEDS: heparin, porcine 5000 units/ml vial SQ SCH ×2 (08:02→20:18)
[2022-01-07 09:10] LABS: ALBUMIN 2.4 G/DL (3.4-5.0); ANION GAP 5 (8-16); BLOOD UREA NITROGEN 14 MG/DL (7-18); BUN/CREATININE RATIO 14.9 (6.6-38.0); CALCIUM 8.5 MG/DL (8.5-10.1); CHLORIDE 105 MMOL/L (99-107); CREATININE 0.94 MG/DL (0.40-0.90); GLUCOSE 129 MG/DL (70-104); MAGNESIUM 1.4 MG/DL (1.5-2.4); POTASSIUM 3.8 MMOL/L (3.5-5.1); SODIUM 141 MMOL/L (135-145); eGFR 60 ML/MIN
[2022-01-07] MEDS: insulin Lispro (HumaLOG) vial - multi-dose SQ SCH ×2 (09:25→18:54)
[2022-01-07 10:00] VITALS: BP 155/36
[2022-01-07] MEDS ORDERED: morphine 2 MG/ML inj. syringe IV ONE (10:50)
[2022-01-07] MEDS: magnesium Cl slow-release 64mg tablet PO PRN ×2 (10:56→22:50)
[2022-01-07] MEDS: normal saline 1000ml 1,000 ML IV SCH (12:55)
[2022-01-07] MEDS: VANCOmycin 1250MG/NS 250ml Bag 250 ML IV SCH (14:36)
--- NOTE | 2022-01-07 16:41 | NUR ---
Pt transfers independently to commode. Wound care provided as orders instructed. Pt voided multiple times and had BM x2. Pts pain is adequately managed with md ordered Hydrocodone. Wound vac changed today by wound care nurse. Will continue to monitor pt.
[2022-01-07 18:00] VITALS: BP 170/62
--- NOTE | 2022-01-07 18:21 | NUR ---
Patient in room ORTHO 4018. I have received report from AMPARO ESCALANTE and had the opportunity to ask questions and assume patient care.
[2022-01-07] MEDS: atorvastatin 20mg tablet PO SCH (20:20)
[2022-01-07] MEDS: hydrALAZINE 20mg/ml inj. IV SCH (20:20)
[2022-01-07] MEDS: insulin glargine (Lantus) pen - multi-dose SQ SCH (21:07)
[2022-01-07 22:00] VITALS: BP 149/44
[2022-01-08] MEDS: HYDROcodone/acetaminophen 10/325mg tab PO PRN ×4 (00:05→20:00)
[2022-01-08] MEDS: hydrALAZINE 20mg/ml inj. IV SCH ×4 (01:50→19:55)
[2022-01-08] MEDS: normal saline 1000ml 1,000 ML IV SCH ×2 (02:15→05:55)
[2022-01-08 06:00] VITALS: BP 140/50
--- NOTE | 2022-01-08 06:21 | NUR ---
Problems reprioritized. Patient report given, questions answered & plan of care reviewed with AMPARO Davis.
[2022-01-08 07:11] LABS: ALBUMIN 2.4 G/DL (3.4-5.0); ANION GAP 5 (8-16); BLOOD UREA NITROGEN 18 MG/DL (7-18); BUN/CREATININE RATIO 20.7 (6.6-38.0); CALCIUM 8.5 MG/DL (8.5-10.1); CHLORIDE 105 MMOL/L (99-107); CREATININE 0.87 MG/DL (0.40-0.90); GLUCOSE 142 MG/DL (70-104); MAGNESIUM 1.5 MG/DL (1.5-2.4); POTASSIUM 3.6 MMOL/L (3.5-5.1); SODIUM 140 MMOL/L (135-145); TOTAL CARBON DIOXIDE 29.7 MMOL/L (24-32); eGFR 66 ML/MIN
[2022-01-08] MEDS: ceftolozone/tazobactam inj. 1.5 GM in normal saline 100ml IV soln 100 ML IV SCH ×3 (07:18→23:27)
[2022-01-08] MEDS: aspirin 81mg tab.chew PO SCH ×2 (07:22→19:55)
[2022-01-08] MEDS: heparin, porcine 5000 units/ml vial SQ SCH ×2 (07:23→19:55)
[2022-01-08] MEDS: duloxetine 30mg CAPSULE.DR PO SCH (07:24)
[2022-01-08] MEDS: K and/or MAG REPLACEMENT MC SCH ×4 (07:32→19:35)
[2022-01-08] MEDS: insulin Lispro (HumaLOG) vial - multi-dose SQ SCH ×2 (08:58→18:57)
--- NOTE | 2022-01-08 09:50 | NUR ---
Reassessment: PO intake is improving, documented with average 63% PO intake since last RD assessment (01/06) though with 75-100% PO intake of most recent meal. Pt receiving a Nish smoothie BIDBD to assist with wound healing, documented with 100% PO intake of ONS. Combined PO intake of meals and ONS is meeting 100% of patient's estimated nutrient needs. LBM 01/07. No additional nutrition intervention implemented at this time. Will continue to follow. Recommendations: 1. Liberalize to regular diet if PO intake declines, A1C 6.1% 2. Nish smoothie BIDBD for wound healing 3. Routine bowel care 4. MVI for wound healing 5. scaled wt this admit; subsequent weekly wts Addendum: 01/08/22 at [address] Amended: Links added.
[2022-01-08 10:00] VITALS: BP 125/45
[2022-01-08] MEDS: VANCOmycin 1250MG/NS 250ml Bag 250 ML IV SCH (13:43)
--- NOTE | 2022-01-08 16:55 | NUR ---
pt repositions independently in bed. pt voids using bedside commode. wound care preformed as instructed. will continue to monitor patient
[2022-01-08] MEDS: JUVEN Smoothie Arginine/Glut./Ca2+Bmb (Juven 19.3pkt) 240ml cup PO SCH (17:40)
[2022-01-08 18:00] VITALS: BP 159/92
--- NOTE | 2022-01-08 18:07 | NUR ---
Problems reprioritized. Patient report given, questions answered & plan of care reviewed with morris alcazar.
--- NOTE | 2022-01-08 18:20 | NUR ---
Patient in room ORTHO 4018. I have received report from AMPARO Davis and had the opportunity to ask questions and assume patient care.
[2022-01-08] MEDS: atorvastatin 20mg tablet PO SCH (19:55)
[2022-01-08] MEDS: insulin glargine (Lantus) pen - multi-dose SQ SCH (21:05)
[2022-01-08 22:00] VITALS: BP 165/48
[2022-01-09] MEDS: HYDROcodone/acetaminophen 10/325mg tab PO PRN ×4 (00:57→18:23)
[2022-01-09] MEDS: hydrALAZINE 20mg/ml inj. IV SCH ×4 (01:37→20:43)
[2022-01-09] MEDS: normal saline 1000ml 1,000 ML IV SCH ×2 (04:55→13:59)
[2022-01-09 05:00] VITALS: BP 124/71
[2022-01-09 05:55] LABS: BASOPHILS # (AUTO) 0.1 X10'3 (0-0.2); BASOPHILS % (AUTO) 0.8 % (0-1); EOSINOPHILS # (AUTO) 0.5 X10'3 (0-0.9); EOSINOPHILS % (AUTO) 5.8 % (0-6); HEMATOCRIT 27.6 % (35.0-45.0); HEMOGLOBIN 9.3 g/dl (12.0-16.0); LYMPHOCYTES # (AUTO) 2.1 X10'3 (1.1-4.8); LYMPHOCYTES % (AUTO) 25.7 % (21-51); MEAN CORPUSCULAR HEMOGLOBIN 30.7 PG (27.0-31.0); MEAN CORPUSCULAR HGB CONC 33.8 g/dL (33.0-36.5); MEAN CORPUSCULAR VOLUME 90.9 FL (78-98); MEAN PLATELET VOLUME 10.4 FL (7.4-10.4); MONOCYTES # (AUTO) 0.9 X10'3 (0-0.9); MONOCYTES % (AUTO) 10.7 % (2-12); NEUTROPHILS # (AUTO) 4.7 X10'3 (1.8-7.7); PLATELET COUNT 229 X10'3 (140-440); RED BLOOD COUNT 3.04 X10'6 (4.20-5.60); RED CELL DISTRIBUTION WIDTH 15.8 % (11.5-14.5); WHITE BLOOD COUNT 8.2 X10'3 (4.5-11.0)
[2022-01-09 06:14] LABS: ALANINE AMINOTRANSFERASE 15 U/L (12-78); ALBUMIN 2.3 G/DL (3.4-5.0); ALBUMIN/GLOBULIN RATIO 0.6 (1.1-1.5); ALKALINE PHOSPHATASE 57 IU/L (46-116); ANION GAP 9 (8-16); ASPARTATE AMINO TRANSFERASE 11 U/L (10-37); BILIRUBIN,TOTAL 0.1 MG/DL (0.1-1.0); BLOOD UREA NITROGEN 15 MG/DL (7-18); BUN/CREATININE RATIO 18.1 (6.6-38.0); CALCIUM 8.6 MG/DL (8.5-10.1); CHLORIDE 104 MMOL/L (99-107); CREATININE 0.83 MG/DL (0.40-0.90); GLUCOSE 133 MG/DL (70-104); MAGNESIUM 1.7 MG/DL (1.5-2.4); POTASSIUM 3.4 MMOL/L (3.5-5.1); SODIUM 140 MMOL/L (135-145); TOTAL CARBON DIOXIDE 27.2 MMOL/L (24-32); eGFR 69 ML/MIN
--- NOTE | 2022-01-09 06:30 | NUR ---
Patient in room ORTHO 4018. I have received report from AMPARO Nathan and had the opportunity to ask questions and assume patient care.
--- NOTE | 2022-01-09 06:42 | NUR ---
Problems reprioritized. Patient report given, questions answered & plan of care reviewed with AMPARO Correa.
--- NOTE | 2022-01-09 07:00 | NUR ---
Patient in room ORTHO 4018. I have received report from Venita CHRISTENSEN and had the opportunity to ask questions and assume patient care.
[2022-01-09] MEDS: JUVEN Smoothie Arginine/Glut./Ca2+Bmb (Juven 19.3pkt) 240ml cup PO SCH ×2 (07:30→18:25)
[2022-01-09] MEDS: K and/or MAG REPLACEMENT MC SCH ×3 (08:00→20:00)
[2022-01-09] MEDS: insulin Lispro (HumaLOG) vial - multi-dose SQ SCH ×3 (09:25→18:50)
[2022-01-09] MEDS: aspirin 81mg tab.chew PO SCH ×2 (09:26→20:43)
[2022-01-09] MEDS: duloxetine 30mg CAPSULE.DR PO SCH (09:26)
[2022-01-09] MEDS: heparin, porcine 5000 units/ml vial SQ SCH ×2 (09:34→20:44)
[2022-01-09 10:00] VITALS: BP 143/34
[2022-01-09] MEDS ORDERED: magnesium 4gm in 100ml NS 100 ML IV PRN (10:15)
[2022-01-09] MEDS ORDERED: magnesium Cl slow-release 64mg tablet PO PRN (10:15)
[2022-01-09] MEDS ORDERED: potassium CL 10mEq/100ml bag 100 ML IV PRN (10:15)
[2022-01-09] MEDS ORDERED: magnesium 2GM in 50ml NS 50 ML IV PRN (10:15)
[2022-01-09] MEDS ORDERED: POTASSIUM BICARB 20meq eff tab 20 MEQ TABLET.EFF PO PRN (10:15)
[2022-01-09] MEDS: POTASSIUM BICARB 20meq eff tab 20 MEQ TABLET.EFF PO PRN ×3 (11:30→20:43)
[2022-01-09] MEDS: ceftolozone/tazobactam inj. 1.5 GM in normal saline 100ml IV soln 100 ML IV SCH ×2 (12:22→16:15)
[2022-01-09] MEDS: VANCOmycin 1250MG/NS 250ml Bag 250 ML IV SCH (13:53)
[2022-01-09 18:00] VITALS: BP 144/54
--- NOTE | 2022-01-09 18:40 | NUR ---
Problems reprioritized. Patient report given, questions answered & plan of care reviewed with AMPARO Comer.
[2022-01-09] MEDS: atorvastatin 20mg tablet PO SCH (20:43)
[2022-01-09] MEDS: insulin glargine (Lantus) pen - multi-dose SQ SCH (20:52)
[2022-01-09 22:00] VITALS: BP 126/34
[2022-01-10] MEDS: HYDROcodone/acetaminophen 10/325mg tab PO PRN ×4 (00:06→21:06)
[2022-01-10] MEDS: ceftolozone/tazobactam inj. 1.5 GM in normal saline 100ml IV soln 100 ML IV SCH ×3 (00:06→16:12)
[2022-01-10 02:00] VITALS: BP 151/46
[2022-01-10] MEDS: hydrALAZINE 20mg/ml inj. IV SCH ×4 (02:21→21:00)
[2022-01-10 06:00] VITALS: BP 135/46
[2022-01-10 06:02] LABS: MAGNESIUM 1.7 MG/DL (1.5-2.4); POTASSIUM 3.8 MMOL/L (3.5-5.1)
--- NOTE | 2022-01-10 06:21 | NUR ---
Patient in room ORTHO 4018. I have received report from elena CHRISTENSEN and had the opportunity to ask questions and assume patient care.
--- NOTE | 2022-01-10 06:30 | NUR ---
Patient in room ORTHO 4018. I have received report from Shakira Rivero RN. and had the opportunity to ask questions and assume patient care.
[2022-01-10] MEDS: JUVEN Smoothie Arginine/Glut./Ca2+Bmb (Juven 19.3pkt) 240ml cup PO SCH ×2 (07:30→17:33)
[2022-01-10] MEDS: K and/or MAG REPLACEMENT MC SCH ×2 (08:00→19:19)
[2022-01-10] MEDS: normal saline 1000ml 1,000 ML IV SCH (08:25)
[2022-01-10] MEDS: aspirin 81mg tab.chew PO SCH ×2 (08:29→21:00)
[2022-01-10] MEDS: duloxetine 30mg CAPSULE.DR PO SCH (08:29)
[2022-01-10] MEDS: heparin, porcine 5000 units/ml vial SQ SCH ×2 (08:30→21:01)
[2022-01-10] MEDS: insulin Lispro (HumaLOG) vial - multi-dose SQ SCH ×3 (08:43→19:10)
[2022-01-10] MEDS: morphine 2 MG/ML inj. syringe IV PRN (10:13)
[2022-01-10] MEDS ORDERED: VANCOMYCIN LEVEL IV ONE (12:30)
[2022-01-10] MEDS: VANCOmycin 1250MG/NS 250ml Bag 250 ML IV SCH (13:16)
--- NOTE | 2022-01-10 16:40 | NUR ---
patient seen by wound team, wound vac changed. Seymour given x2 for pain with good effect. Seen by Dr Vera, all cares given. PICC nurse paged with regards placement of PICC for detention Iv ABX. No response. Called Mary Ann in angio, note was left for PICC nurse to do PICC tomorrow. 01/11. Seen by Dr Barrett.
[2022-01-10 18:00] VITALS: BP 123/42
--- NOTE | 2022-01-10 18:16 | NUR ---
Problems reprioritized. Patient report given, questions answered & plan of care reviewed with Shakira Montes RN.
[2022-01-10] MEDS: atorvastatin 20mg tablet PO SCH (21:00)
[2022-01-10] MEDS: insulin glargine (Lantus) pen - multi-dose SQ SCH (21:10)
[2022-01-10 22:00] VITALS: BP 141/44
[2022-01-11] MEDS: HYDROcodone/acetaminophen 10/325mg tab PO PRN ×3 (01:59→13:43)
[2022-01-11] MEDS: hydrALAZINE 20mg/ml inj. IV SCH ×3 (01:59→13:45)
[2022-01-11 06:00] VITALS: BP 145/50
--- NOTE | 2022-01-11 06:22 | NUR ---
Report given to Charley CHRISTENSEN.
--- NOTE | 2022-01-11 06:45 | NUR ---
Patient in room ORTHO 4016. I have received report from Irma and had the opportunity to ask questions and assume patient care.
[2022-01-11] MEDS: K and/or MAG REPLACEMENT MC SCH (08:00)
[2022-01-11] MEDS: JUVEN Smoothie Arginine/Glut./Ca2+Bmb (Juven 19.3pkt) 240ml cup PO SCH (08:16)
[2022-01-11] MEDS: duloxetine 30mg CAPSULE.DR PO SCH (08:25)
[2022-01-11] MEDS: ceftolozone/tazobactam inj. 1.5 GM in normal saline 100ml IV soln 100 ML IV SCH ×3 (08:25)
[2022-01-11] MEDS: aspirin 81mg tab.chew PO SCH (08:25)
[2022-01-11] MEDS: heparin, porcine 5000 units/ml vial SQ SCH (08:26)
--- NOTE | 2022-01-11 09:00 | NUR ---
Pt declined to eat breakfast, BG 111, pt declined insulin. Pt later had a donut brought in by family.
[2022-01-11 10:00] VITALS: BP 117/43
[2022-01-11] MEDS: normal saline 1000ml 1,000 ML IV SCH ×2 (10:15)
[2022-01-11] MEDS ORDERED: VANCOMYCIN 1,500MG in normal saline IV soln 300 ML IV SCH (13:00)
[2022-01-11] MEDS: insulin Lispro (HumaLOG) vial - multi-dose SQ SCH (13:39)
[2022-01-11 13:44] VITALS: BP 158/72
[2022-01-11 13:45] VITALS: BP_SYST 158
--- NOTE | 2022-01-11 14:51 | NUR ---
Problems reprioritized. Patient report given, questions answered & plan of care reviewed with Ale at [facility].
--- NOTE | 2022-01-11 15:36 | NUR ---
Pt was picked up by EMS personnel to be transported to [facility]. Pt is alert, oriented. Pt's family has her belongings.
[2022-01-14] MEDS ORDERED: VANCOMYCIN LEVEL IV ONE (12:30)
== END 2022-01-11 15:30 | DRG 711 ==
LOC: ER 10:03 → ED HOLD 15:37 → ORTHO 4S 17:34
PROVIDERS: ADMIT Internal Medicine; ATTEND Internal Medicine
PROC: B4201ZZ Computerized Tomography (CT Scan) of Abdominal Aorta using Low Osmolar Contrast (ICD-10-PCS; 2021-12-29)
PROC: B4281ZZ Computerized Tomography (CT Scan) of Bilateral Renal Arteries using Low Osmolar Contrast (ICD-10-PCS; 2021-12-29)
PROC: B42C1ZZ Computerized Tomography (CT Scan) of Pelvic Arteries using Low Osmolar Contrast (ICD-10-PCS; 2021-12-29)
PROC: B42H1ZZ Computerized Tomography (CT Scan) of Bilateral Lower Extremity Arteries using Low Osmolar Contrast (ICD-10-PCS; 2021-12-29)
PROC: B4211ZZ Computerized Tomography (CT Scan) of Celiac Artery using Low Osmolar Contrast (ICD-10-PCS; 2021-12-29)
PROC: 0KXQ0ZZ Transfer Right Upper Leg Muscle, Open Approach (ICD-10-PCS; principal; 2021-12-30 17:43)
PROC: 3E0234Z Introduction of Serum, Toxoid and Vaccine into Muscle, Percutaneous Approach (ICD-10-PCS; 2022-01-01)
PROC: 02HV33Z Insertion of Infusion Device into Superior Vena Cava, Percutaneous Approach (ICD-10-PCS; 2022-01-11)
PROC: B548ZZA Ultrasonography of Superior Vena Cava, Guidance (ICD-10-PCS; 2022-01-11)
DX: T81.41XA Infection following a procedure, superficial incisional surgical site, initial encounter (principal); T81.31XA Disruption of external operation (surgical) wound, not elsewhere classified, initial encounter; E11.22 Type 2 diabetes mellitus with diabetic chronic kidney disease; L02.214 Cutaneous abscess of groin; L76.34 Postprocedural seroma of skin and subcutaneous tissue following other procedure; B96.5 Pseudomonas (aeruginosa) (mallei) (pseudomallei) as the cause of diseases classified elsewhere; Z66 Do not resuscitate; Z20.822 Contact with and (suspected) exposure to COVID-19; E11.51 Type 2 diabetes mellitus with diabetic peripheral angiopathy without gangrene; E87.6 Hypokalemia; D64.9 Anemia, unspecified; Y83.8 Other surgical procedures as the cause of abnormal reaction of the patient, or of later complication, without mention of misadventure at the time of the procedure; F12.90 Cannabis use, unspecified, uncomplicated; I12.9 Hypertensive chronic kidney disease with stage 1 through stage 4 chronic kidney disease, or unspecified chronic kidney disease; N18.9 Chronic kidney disease, unspecified; K80.20 Calculus of gallbladder without cholecystitis without obstruction; Z16.24 Resistance to multiple antibiotics; Z72.0 Tobacco use; Z79.4 Long term (current) use of insulin; Z23 Encounter for immunization; Z79.899 Other long term (current) drug therapy; Z79.82 Long term (current) use of aspirin; Y92.89 Other specified places as the place of occurrence of the external cause
CPT/HCPCS: 36415; 36569; 75635; 76942; 80048; 80053; 80202; 81003; 82948; 83605; 83735; 83880; 84132; 84145; 85025; 85379; 85610; 85651; 85730; 86140; 87040; 87070; 87075; 87077; 87081; 87102; 87186; 87635; 90732; 93005; 93926; 96365; 97116; 97162; 97530; 99285; A4215; A4618; A4649; A6154; A6212; A6253; A6258; A6446; A6449; A6455; A6550; A7000; C1751; C9803; G0378; J0360; J0690; J0695; J0696; J1644; J1815; J2250; J2270; J2543; J2704; J3010; J3370; J3490; J7030; J7040; J7120; P9045; Q9967

== ENCOUNTER 2022-01-21 06:09 | Inpatient (IN) | payer MEDICAID ==
[~2022-01-21] VITALS: Ht 165.1 cm; Wt 73.8 kg
[2022-01-21] VITALS (14 sets, daily range): BP systolic 81–162; BP diastolic 38–80
[~2022-01-21 06:09] MED LIST changes: -ALBU17AE26 INH; +ASPI-1265 PO; -ASPI81TA53 PO; -ATOR20TA66 PO; +ATOR40TA71 PO; +DULO30CA52 PO; -HYDR-3972 PO; -MELA10CA2 PO; +MELA5TAB12 PO; -OMEP40CA21 PO
[2022-01-21] MEDS ORDERED: pantoprazole IV 80 MG in normal saline 100ml IV soln 100 ML IV ONE ×2 (06:15→09:35)
[2022-01-21] MEDS ORDERED: normal saline 1000ML IV soln IVB ONE (06:15)
[2022-01-21] MEDS ORDERED: pantoprazole 40MG/NS 100ML BAG 100 ML IV ONE ×5 (06:20→10:00)
[2022-01-21] MEDS ORDERED: LORazepam 2 mg/ml vial IV ONE (07:15)
[2022-01-21 08:43] LABS: BASOPHILS # (AUTO) 0.1 X10'3 (0-0.2); BASOPHILS % (AUTO) 1.3 % (0-1); EOSINOPHILS % (AUTO) 0.4 % (0-6); LYMPHOCYTES % (AUTO) 22.1 % (21-51); MEAN CORPUSCULAR HEMOGLOBIN 30.7 PG (27.0-31.0); MEAN PLATELET VOLUME 9.7 FL (7.4-10.4); MONOCYTES # (AUTO) 0.6 X10'3 (0-0.9); MONOCYTES % (AUTO) 6.3 % (2-12); NEUTROPHILS # (AUTO) 6.4 X10'3 (1.8-7.7); NEUTROPHILS % (AUTO) 69.9 % (42-75); PLATELET COUNT 281 X10'3 (140-440); RED BLOOD COUNT 1.71 X10'6 (4.20-5.60); RED CELL DISTRIBUTION WIDTH 15.9 % (11.5-14.5); WHITE BLOOD COUNT 9.2 X10'3 (4.5-11.0)
[2022-01-21 08:48] LABS: HEMATOCRIT 15.9 % (35.0-45.0); HEMOGLOBIN 5.2 g/dl (12.0-16.0)
[2022-01-21] MEDS ORDERED: ringers solution, lactated 1000ml IV soln IV ONE (08:55)
[2022-01-21 09:00] LABS: ALANINE AMINOTRANSFERASE 28 U/L (12-78); ALBUMIN 2.5 G/DL (3.4-5.0); ALBUMIN/GLOBULIN RATIO 0.7 (1.1-1.5); ALKALINE PHOSPHATASE 57 IU/L (46-116); ANION GAP 14 (8-16); ASPARTATE AMINO TRANSFERASE 21 U/L (10-37); BILIRUBIN,TOTAL 0.2 MG/DL (0.1-1.0); BLOOD UREA NITROGEN 51 MG/DL (7-18); CALCIUM 8.7 MG/DL (8.5-10.1); CHLORIDE 106 MMOL/L (99-107); GLUCOSE 310 MG/DL (70-104); LIPASE < 50 U/L (73-393); MAGNESIUM 1.7 MG/DL (1.5-2.4); POTASSIUM 4.6 MMOL/L (3.5-5.1); SODIUM 143 MMOL/L (135-145); TOTAL CARBON DIOXIDE 23.5 MMOL/L (24-32)
[2022-01-21] MEDS ORDERED: ondansetron/PF 4mg/2ml inj IV ONE ×2 (09:10→10:00)
[2022-01-21 09:12] LABS: APTT 20 SECONDS (22-32)
[2022-01-21 09:20] LABS: CREATININE 0.88 MG/DL (0.40-0.90); eGFR 65 ML/MIN
--- NOTE | 2022-01-21 09:30 | NUR ---
patient inc of large amt bloody stool prior to blood transfusion, also had mod amt bloody emesis. dr. Mak notified and at beside. orders for antiemetic given and administered with some relief of nausea.
[2022-01-21] MEDS ORDERED: acetaminophen 325mg tablet PO PRN ×2 (09:40)
[2022-01-21] MEDS ORDERED: MESSAGE TO PHARMACY PO ONE (09:40)
[2022-01-21] MEDS ORDERED: DEXTROSE 15 GM of carb/4 tabs (each vial/BOTTLE has 4 tablets) PO PRN ×2 (09:40)
[2022-01-21] MEDS ORDERED: morphine 2 MG/ML inj. syringe IV PRN (09:40)
[2022-01-21] MEDS ORDERED: ondansetron/PF 4mg/2ml inj IV PRN (09:40)
[2022-01-21] MEDS ORDERED: magnesium hydroxide 30ml (MOM) UD suspension PO PRN (09:40)
[2022-01-21] MEDS ORDERED: dextrose 50%-water 50ml dispensing syringe IV PRN ×2 (09:40)
[2022-01-21] MEDS ORDERED: glucagon, human recombinant 1mg kit SUBCUT PRN (09:40)
[2022-01-21] MEDS ORDERED: mag hydrox/Alum hydrox/simeth 30ml oral suspension PO PRN (09:40)
[2022-01-21] MEDS: morphine 2 MG/ML inj. syringe IV PRN ×2 (10:36→19:44)
--- NOTE | 2022-01-21 10:48 | NUR ---
Assisted up onto bedpan voided appr. 300 cc urine mixed with bloody stool. c/o nausea, vomited bloody phlegm. MD student notified, orders given and initiated.
--- NOTE | 2022-01-21 10:52 | NUR ---
open area noted on buttocks, documented in wounds and pictures taken. Repositioned patient off buttocks and enc patient to stayon sides.
[2022-01-21] MEDS: pantoprazole 40MG/NS 100ML BAG 100 ML IV SCH ×3 (11:34→21:41)
[2022-01-21] MEDS: insulin Lispro (HumaLOG) vial - multi-dose SQ SCH ×3 (12:52→21:37)
--- NOTE | 2022-01-21 13:12 | NUR ---
while on bedpan pt. became nauseated and had sm amt. bloody emesis. MD Student Anu notified. urine spilled in bed and had sm amt of bloody stool, pt cleansed and linens changed. groin and buttocks becoming excoriated, barrier cream applied.
[2022-01-21] MEDS ORDERED: furosemide 10 MG/1 ML 10ml inj IV ONE ×2 (13:45→13:55)
--- NOTE | 2022-01-21 13:45 | NUR ---
Pt hypoxic and tachypenic; spoke to hospitalist. 40mg IV lasix order received.
--- NOTE | 2022-01-21 13:51 | NUR ---
Dr. Mak notified of decreased sats 85-89, orders given and initiated.
--- NOTE | 2022-01-21 14:37 | NUR ---
placed on hospital bed for comfort.
[2022-01-21] MEDS ORDERED: CEFT1.5V IV (15:56)
[2022-01-21] MEDS ORDERED: LIDO15CR11 TOP (15:56)
[2022-01-21] MEDS ORDERED: ZINC220C12 PO (15:56)
[2022-01-21] MEDS ORDERED: BALS60OI TP (15:56)
[2022-01-21] MEDS ORDERED: ASCO-134 PO (15:56)
[2022-01-21] MEDS ORDERED: ENOX40SY7 SUBCUT (15:56)
[2022-01-21] MEDS ORDERED: VANC1.5P34 IV (15:56)
[2022-01-21] MEDS ORDERED: INSU100I57 SQ (15:56)
[2022-01-21] MEDS ORDERED: SODI473S26 TOP (15:56)
[2022-01-21] MEDS ORDERED: MELA3TAB70 PO (15:56)
[2022-01-21 17:12] LABS: HEMOGLOBIN 12.1 g/dl (12.0-16.0); MEAN CORPUSCULAR HEMOGLOBIN 30.7 PG (27.0-31.0); MEAN CORPUSCULAR HGB CONC 33.7 g/dL (33.0-36.5); MEAN CORPUSCULAR VOLUME 91.1 FL (78-98); MEAN PLATELET VOLUME 9.5 FL (7.4-10.4); PLATELET COUNT 270 X10'3 (140-440); RED BLOOD COUNT 3.95 X10'6 (4.20-5.60); RED CELL DISTRIBUTION WIDTH 14.9 % (11.5-14.5); WHITE BLOOD COUNT 12.8 X10'3 (4.5-11.0)
--- NOTE | 2022-01-21 18:27 | NUR ---
PAGED DR HUANG RE: PAGER ID: [phone] MESSAGE: ERICK MORGAN. [phone]. PT HAS OPEN WOUND R GROIN WITH NO DRESSING. NEED WOUND CARE ORDERS. [facility] [place] TELE [phone]
--- NOTE | 2022-01-21 18:49 | NUR ---
Patient in room PCU 3022. I have received report from Fabby CHRISTENSEN and had the opportunity to ask questions and assume patient care. Pt is laying supine on right side. Pt has c/o nausea. Please see interventions. Pt declines c/o pain. Pt has fammily member at bed side. Pt on RA. No s/s of distress. BLL, call light wihtnin reach, frequently used items in reach, frequent rounding, ict project manager socks in place. Will continue to monitor.
--- NOTE | 2022-01-21 18:50 | NUR ---
Problems reprioritized. Patient report given, questions answered & plan of care reviewed with ELENI CHRISTENSEN.
[2022-01-21] MEDS: docusate sod 100mg capsule PO SCH (19:35)
[2022-01-21] MEDS: insulin glargine (Lantus) pen - multi-dose SQ SCH (21:39)
[2022-01-22] VITALS (15 sets, daily range): BP systolic 101–139; BP diastolic 40–73
[2022-01-22] MEDS ORDERED: CEFTOLOZANE/TAZOBACTAM 1.5 GM VIAL IV SCH
[2022-01-22] MEDS: pantoprazole 40MG/NS 100ML BAG 100 ML IV SCH ×3 (01:00→11:00)
[2022-01-22] MEDS: morphine 2 MG/ML inj. syringe IV PRN ×3 (01:29→17:50)
[2022-01-22] MEDS ORDERED: VANCOMYCIN 1,500MG in NS 300ml IVPB IV SCH (06:00)
--- NOTE | 2022-01-22 06:49 | NUR ---
Problems reprioritized. Patient report given, questions answered & plan of care reviewed with Amalia CHRISTENSEN.
[2022-01-22] MEDS ORDERED: WATER FOR INJ IV SCH (08:00)
[2022-01-22] MEDS ORDERED: [UNRECOGNIZED DRUG - OTHER] IV SCH (08:00)
[2022-01-22] MEDS ORDERED: VANCOMYCIN IV SCH (08:00)
[2022-01-22 08:42] LABS: BASOPHILS # (AUTO) 0.1 X10'3 (0-0.2); BASOPHILS % (AUTO) 0.7 % (0-1); EOSINOPHILS % (AUTO) 0 % (0-6); HEMATOCRIT 30.4 % (35.0-45.0); HEMOGLOBIN 10.3 g/dl (12.0-16.0); LYMPHOCYTES # (AUTO) 1.8 X10'3 (1.1-4.8); LYMPHOCYTES % (AUTO) 10.7 % (21-51); MEAN CORPUSCULAR HEMOGLOBIN 30.8 PG (27.0-31.0); MEAN CORPUSCULAR HGB CONC 33.9 g/dL (33.0-36.5); MEAN CORPUSCULAR VOLUME 90.8 FL (78-98); MEAN PLATELET VOLUME 9.7 FL (7.4-10.4); MONOCYTES # (AUTO) 1.6 X10'3 (0-0.9); MONOCYTES % (AUTO) 9.6 % (2-12); NEUTROPHILS # (AUTO) 13.1 X10'3 (1.8-7.7); PLATELET COUNT 234 X10'3 (140-440); RED BLOOD COUNT 3.35 X10'6 (4.20-5.60); WHITE BLOOD COUNT 16.7 X10'3 (4.5-11.0)
[2022-01-22] MEDS: docusate sod 100mg capsule PO SCH ×2 (08:50→19:56)
[2022-01-22] MEDS: ceftolozone/tazobactam inj. 1.5 GM in normal saline 100ml IV soln 100 ML IV SCH ×4 (08:50→16:30)
[2022-01-22] MEDS: insulin Lispro (HumaLOG) vial - multi-dose SQ SCH ×3 (08:55→21:59)
[2022-01-22 08:58] LABS: ALBUMIN 2.5 G/DL (3.4-5.0); ANION GAP 8 (8-16); BLOOD UREA NITROGEN 28 MG/DL (7-18); BUN/CREATININE RATIO 33.3 (6.6-38.0); CALCIUM 8.3 MG/DL (8.5-10.1); CHLORIDE 107 MMOL/L (99-107); CREATININE 0.84 MG/DL (0.40-0.90); GLUCOSE 245 MG/DL (70-104); POTASSIUM 3.5 MMOL/L (3.5-5.1); SODIUM 142 MMOL/L (135-145); TOTAL CARBON DIOXIDE 27.1 MMOL/L (24-32); eGFR 68 ML/MIN
[2022-01-22] MEDS ORDERED: LIDOcaine Viscous 15ml cup ONE (09:55)
[2022-01-22] MEDS ORDERED: fentaNYL/PF 50MCG/1 ML 2ML syringe ONE (09:55)
[2022-01-22] MEDS ORDERED: MIDAZolam 1 MG/ML 5ML VIAL ONE (09:55)
--- NOTE | 2022-01-22 15:52 | NUR ---
PAGER ID: [phone] MESSAGE: Amalia [phone] Re: Cesar [phone] Patient back from GI lab please see me when you see patient have a few questions
--- NOTE | 2022-01-22 18:21 | NUR ---
PAGER ID: [phone] MESSAGE: Amalia SCHAFFER [phone] Re: Cesar [phone] Patient has surgical wound that is draining in right groin. Wound cultures? Dressing wet to dry BID
--- NOTE | 2022-01-22 18:26 | NUR ---
Patient in room PCU 3022. I have received report from Amalia CHRISETNSEN and had the opportunity to ask questions and assume patient care. Pt is laying supine on right side. Pt on RA. No s/s of distress. Pt denies c/o pain. Pt denies c/o n/v. BLL, call light wihtin reach, frequently used items in reach, frequent rounding, smasher socks on. Will continue to monitor.
--- NOTE | 2022-01-22 18:59 | NUR ---
Problems reprioritized. Patient report given, questions answered & plan of care reviewed with Ami WEINER. Addendum: 01/22/22 at 1900 by Amalia Almaraz RN Correction report given to Evelia CHRISTENSEN
[2022-01-22] MEDS: pantoprazole 40mg Tablet.DR PO SCH (19:56)
[2022-01-22] MEDS ORDERED: pantoprazole 40mg Tablet.DR PO SCH (20:00)
[2022-01-22] MEDS: insulin glargine (Lantus) pen - multi-dose SQ SCH (22:01)
[2022-01-23] VITALS (9 sets, daily range): BP systolic 97–134; BP diastolic 32–94
[2022-01-23] MEDS: morphine 2 MG/ML inj. syringe IV PRN ×3 (01:38→22:30)
[2022-01-23] MEDS: VANCOMYCIN 1,500MG in NS 300ml IVPB IV SCH (05:48)
--- NOTE | 2022-01-23 06:31 | NUR ---
Problems reprioritized. Patient report given, questions answered & plan of care reviewed with Amalia CHRISTENSEN.
--- NOTE | 2022-01-23 06:56 | NUR ---
Patient in room PCU 3022. I have received report from Evelia CHRISTENSEN and had the opportunity to ask questions and assume patient care.
[2022-01-23] MEDS: docusate sod 100mg capsule PO SCH ×2 (07:34→20:45)
[2022-01-23] MEDS: pantoprazole 40mg Tablet.DR PO SCH ×2 (07:34→20:45)
[2022-01-23] MEDS: ceftolozone/tazobactam inj. 1.5 GM in normal saline 100ml IV soln 100 ML IV SCH ×4 (07:35→16:15)
[2022-01-23 07:46] LABS: BASOPHILS # (AUTO) 0.1 X10'3 (0-0.2); BASOPHILS % (AUTO) 0.5 % (0-1); EOSINOPHILS % (AUTO) 0.4 % (0-6); HEMATOCRIT 26.9 % (35.0-45.0); HEMOGLOBIN 9.1 g/dl (12.0-16.0); LYMPHOCYTES # (AUTO) 2.3 X10'3 (1.1-4.8); LYMPHOCYTES % (AUTO) 21.4 % (21-51); MEAN CORPUSCULAR HEMOGLOBIN 31.2 PG (27.0-31.0); MEAN CORPUSCULAR HGB CONC 33.8 g/dL (33.0-36.5); MEAN CORPUSCULAR VOLUME 92.3 FL (78-98); MEAN PLATELET VOLUME 9.5 FL (7.4-10.4); MONOCYTES # (AUTO) 1.3 X10'3 (0-0.9); MONOCYTES % (AUTO) 11.6 % (2-12); NEUTROPHILS # (AUTO) 7.1 X10'3 (1.8-7.7); NEUTROPHILS % (AUTO) 66.1 % (42-75); PLATELET COUNT 217 X10'3 (140-440); RED BLOOD COUNT 2.91 X10'6 (4.20-5.60); RED CELL DISTRIBUTION WIDTH 15.5 % (11.5-14.5); WHITE BLOOD COUNT 10.8 X10'3 (4.5-11.0)
[2022-01-23 07:50] LABS: ALBUMIN 2.4 G/DL (3.4-5.0); ANION GAP 5 (8-16); BLOOD UREA NITROGEN 19 MG/DL (7-18); BUN/CREATININE RATIO 22.6 (6.6-38.0); CALCIUM 8.4 MG/DL (8.5-10.1); CHLORIDE 106 MMOL/L (99-107); CREATININE 0.84 MG/DL (0.40-0.90); GLUCOSE 158 MG/DL (70-104); POTASSIUM 3.8 MMOL/L (3.5-5.1); SODIUM 139 MMOL/L (135-145); TOTAL CARBON DIOXIDE 28.3 MMOL/L (24-32); eGFR 68 ML/MIN
[2022-01-23] MEDS ORDERED: normal saline 500ml IV soln 500 ML IV ONE (09:05)
--- NOTE | 2022-01-23 09:05 | NUR ---
Dr Roblero aware patient orthostatic vitals are positive received orders for 500 ml NS bolus recheck and let him know results
[2022-01-23] MEDS: insulin Lispro (HumaLOG) vial - multi-dose SQ SCH ×3 (09:48→19:48)
--- NOTE | 2022-01-23 13:01 | NUR ---
PAGER ID: [phone] MESSAGE: ADRIANA ON TELE@[phone], CAN I ADVANCE DIET IN 3021 TO CLEARS OR FULL LIQUID??
[2022-01-23] MEDS: HYDROcodone/acetaminophen 5mg/325mg tablet PO PRN (14:16)
--- NOTE | 2022-01-23 18:31 | NUR ---
Problems reprioritized. Patient report given, questions answered & plan of care reviewed with DAVIS CHRISTENSEN.
[2022-01-23] MEDS: nystatin 15 GM powder TP SCH (20:45)
[2022-01-23] MEDS: insulin glargine (Lantus) pen - multi-dose SQ SCH (22:46)
[2022-01-24] MEDS: ceftolozone/tazobactam inj. 1.5 GM in normal saline 100ml IV soln 100 ML IV SCH ×3 (00:21→17:18)
[2022-01-24 02:00] VITALS: BP 115/70
[2022-01-24] MEDS: VANCOMYCIN 1,500MG in NS 300ml IVPB IV SCH (05:18)
--- NOTE | 2022-01-24 05:43 | NUR ---
Did BMP, CBC lab draw from right upper PICC at 0530 AM, specimen were hand over to App[employer] at 05$)
--- NOTE | 2022-01-24 05:45 | NUR ---
Did BMP, CBC lab draw from right upper PICC at 0530 AM, specimen were hand over to [employer] at 0540 AM.
[2022-01-24 06:00] VITALS: BP 100/41
[2022-01-24 06:42] LABS: BASOPHILS % (AUTO) 0.4 % (0-1); EOSINOPHILS # (AUTO) 0.2 X10'3 (0-0.9); EOSINOPHILS % (AUTO) 2.4 % (0-6); HEMATOCRIT 27.1 % (35.0-45.0); LYMPHOCYTES # (AUTO) 1.6 X10'3 (1.1-4.8); LYMPHOCYTES % (AUTO) 18.5 % (21-51); MEAN CORPUSCULAR HEMOGLOBIN 31.1 PG (27.0-31.0); MEAN CORPUSCULAR HGB CONC 33.1 g/dL (33.0-36.5); MEAN PLATELET VOLUME 10.1 FL (7.4-10.4); MONOCYTES # (AUTO) 0.9 X10'3 (0-0.9); MONOCYTES % (AUTO) 10.3 % (2-12); NEUTROPHILS % (AUTO) 68.4 % (42-75); PLATELET COUNT 198 X10'3 (140-440); RED BLOOD COUNT 2.88 X10'6 (4.20-5.60); RED CELL DISTRIBUTION WIDTH 15.2 % (11.5-14.5); WHITE BLOOD COUNT 8.7 X10'3 (4.5-11.0)
--- NOTE | 2022-01-24 07:14 | NUR ---
Patient in room PCU 3022. I have received report from DAVIS CHRISTENSEN and had the opportunity to ask questions and assume patient care.
[2022-01-24 07:27] LABS: ALBUMIN 2.3 G/DL (3.4-5.0); ANION GAP 6 (8-16); BLOOD UREA NITROGEN 13 MG/DL (7-18); BUN/CREATININE RATIO 17.8 (6.6-38.0); CALCIUM 8.2 MG/DL (8.5-10.1); CHLORIDE 105 MMOL/L (99-107); CREATININE 0.73 MG/DL (0.40-0.90); GLUCOSE 138 MG/DL (70-104); POTASSIUM 3.7 MMOL/L (3.5-5.1); SODIUM 138 MMOL/L (135-145); TOTAL CARBON DIOXIDE 27.1 MMOL/L (24-32); eGFR 80 ML/MIN
[2022-01-24] MEDS: HYDROcodone/acetaminophen 5mg/325mg tablet PO PRN ×2 (09:07→14:10)
[2022-01-24] MEDS: pantoprazole 40mg Tablet.DR PO SCH (09:07)
[2022-01-24] MEDS: docusate sod 100mg capsule PO SCH (09:07)
[2022-01-24] MEDS: nystatin 15 GM powder TP SCH (09:13)
[2022-01-24] MEDS ORDERED: LORazepam 0.5 MG tablet PO ONE (11:30)
--- NOTE | 2022-01-24 11:30 | NUR ---
PAGER ID: [phone] MESSAGE: Amalia [facility] [phone] Re: Cesar [phone] Patient very anxious about going to [facility] can she have a small dose of Ativan PO to help? Addendum: 01/24/22 at 1131 by Amalia Almaraz RN Received order for 0.5mg PO Ativan x1
[2022-01-24 11:32] VITALS: BP 106/73
--- NOTE | 2022-01-24 11:52 | NUR ---
WOUND CARE DID PATIENT DRESSING TODAY
[2022-01-24 13:23] LABS: C-REACTIVE PROTEIN 8.32 MG/DL (0.0-0.5)
[2022-01-24] MEDS: insulin Lispro (HumaLOG) vial - multi-dose SQ SCH (17:27)
--- NOTE | 2022-01-24 18:12 | NUR ---
Problems reprioritized. Patient report given, questions answered & plan of care reviewed with Alvino CHRISTENSEN. Patient still awaiting transport to [facility]. Patients Tele Dc'd
--- NOTE | 2022-01-24 19:29 | NUR ---
Pt left PCU at 19:27 PM with gurney and discharge pakage, SN flush IV PICC.Pt is alert oiention x 4 without pain.
[2022-01-25] MEDS ORDERED: VANCOMYCIN LEVEL IV ONE (04:30)
== END 2022-01-24 19:30 | DRG 241 ==
LOC: ER 06:09 → PAS IN 09:49 → ED HOLD 10:00 → EDBEDREQ 15:01 → PCU 3S 17:19
PROVIDERS: ADMIT Internal Medicine; ATTEND Internal Medicine
PROC: 30233N1 Transfusion of Nonautologous Red Blood Cells into Peripheral Vein, Percutaneous Approach (ICD-10-PCS; 2022-01-21)
PROC: 0DB68ZX Excision of Stomach, Via Natural or Artificial Opening Endoscopic, Diagnostic (ICD-10-PCS; principal; 2022-01-22)
DX: K29.71 Gastritis, unspecified, with bleeding (principal); D62 Acute posthemorrhagic anemia; E11.51 Type 2 diabetes mellitus with diabetic peripheral angiopathy without gangrene; K20.91 Esophagitis, unspecified with bleeding; I95.9 Hypotension, unspecified; T81.40XA Infection following a procedure, unspecified, initial encounter; Z20.822 Contact with and (suspected) exposure to COVID-19; E78.5 Hyperlipidemia, unspecified; Y83.8 Other surgical procedures as the cause of abnormal reaction of the patient, or of later complication, without mention of misadventure at the time of the procedure; F32.A Depression, unspecified; I10 Essential (primary) hypertension; I25.10 Atherosclerotic heart disease of native coronary artery without angina pectoris; Z95.1 Presence of aortocoronary bypass graft; Z88.8 Allergy status to other drugs, medicaments and biological substances; Y92.89 Other specified places as the place of occurrence of the external cause
CPT/HCPCS: 36415; 36430; 43239; 71045; 80048; 80053; 82948; 83690; 83735; 83880; 85025; 85027; 85610; 85651; 85730; 86140; 86885; 86900; 86901; 86920; 87081; 87811; 93005; 97162; 99152; 99291; A4620; A6213; A6402; A6446; A6449; C1758; C9113; G0378; J0695; J1815; J1940; J2060; J2250; J2270; J2405; J3010; J3370; J3490; J7030; J7040; J7120; P9016

== ENCOUNTER 2023-08-23 13:15 | Outpatient (CLI) | payer MEDICARE, MEDICAID ==
[~2023-08-23 13:15] MED LIST changes: +ASCO-134 PO; -ASPI-1265 PO; +CLOP75TA34 PO; +INSU100I57 SQ; -LIRA0.6P2 SQ; +MELA3TAB70 PO; -MELA5TAB12 PO; +NICO-631 TD; +ZINC220C12 PO
[2023-08-23 14:02] LABS: ALBUMIN 3.5 G/DL (3.4-5.0); ANION GAP 6 (8-16); BLOOD UREA NITROGEN 17 MG/DL (7-18); BUN/CREATININE RATIO 18.1 (10.0-20.0); CHLORIDE 106 MMOL/L (99-107); CREATININE 0.94 MG/DL (0.40-0.90); GLUCOSE 73 MG/DL (70-104); POTASSIUM 4.1 MMOL/L (3.5-5.1); SODIUM 136 MMOL/L (135-145); TOTAL CARBON DIOXIDE 24.3 MMOL/L (24-32); eGFR 60 ML/MIN
[2023-08-23] MEDS ORDERED: iohexol 350 MG/ML 50ML vial IV ONE (14:42)
[2023-08-23] MEDS ORDERED: iohexol 350MG/ML 100ml bottle IV ONE (14:42)
== END 2023-08-23 23:59 | disposition home or self-care (01) ==
LOC: RAD 13:15
PROVIDERS: ATTEND Surgery
DX: K80.20 Calculus of gallbladder without cholecystitis without obstruction (principal); I70.203 Unspecified atherosclerosis of native arteries of extremities, bilateral legs; I70.0 Atherosclerosis of aorta
CPT/HCPCS: 36415; 75635; 80048; J3490; Q9967